=== PATIENT | female | born 1955 | race Caucasian/White ===

== ENCOUNTER 2016-12-23 12:11 | Observation (INO) | payer MEDICARE, MEDICAID ==
--- NOTE | 2016-12-23 13:01 | ER Document Report ---
ED General - General Information source: Dr. Nithya Shine, Outside Facility Records TRAVEL OUTSIDE OF THE [place] IN LAST 30 DAYS: No - HPI Patient complains to provider of: Syncope Onset: This morning Onset/Duration: Sudden, Persistent Associated symptoms: Other - Lower extremity pain from fall <ROBB DENTON - Last Filed: 12/23/16 13:24> <STEPHEN MONGE - Last Filed: 12/23/16 15:53> - General Chief Complaint: Syncope Stated Complaint: ABNORMAL LABS Notes: Patient is a 61-year-old female, with past medical history including hypertension, schizophrenia, and diabetes type 2, and smoking, who presents to the emergency department today after being seen at her primary care physician's office, Dr. Garcia, for a syncopal episode this morning after taking a shower. Patient states that she blacked out and fell down hitting her head. While at the doctor's office, the physician witness several syncopal episodes, and reports a blood pressure of 80/40, blood glucose 186, heart rate of 100. Dr. Garcia sent a note with the patient stating that he wanted her to get evaluated for possible intracranial hemorrhage. The nurse accompanying the patient from [facility] states that the patient has had garbled speech, and will say things that do not make sense. (ROBB DENTON) This 61-year-old schizophrenic patient is brought from her primary care provider 's office hypertension and syncope. While in the office they recorded a blood pressure of 80/40. She was seen to fall several times. She did fall prior to going to the office and striking her right forehead with a minor wound. Emergency room the patient only complains of pain to her left lateral thigh related to a fall 2 months ago which caused some bruising at the time. She is able to lift the leg, flex the hip, and actually move that extremity about quite a lot with no problem. It is not tender to palpate at all. (STEPHEN MONGE) - Related Data Allergies/Adverse Reactions: Penicillins Allergy (Verified 12/23/16 12:45) Past Medical History - General Information source: Dr. Nithya Shine, Outside Facility Records - Nurse from [facility] - Social History Smoking Status: Current Every Day Smoker Family History: None, Reviewed & Not Pertinent Patient has suicidal ideation: No Patient has homicidal ideation: No - Past Medical History Cardiac Medical History: Reports: Hx Hypercholesterolemia, Hx Hypertension Endocrine Medical History: Reports: Hx Diabetes Mellitus Type 2, Hx Hypothyroidism Psychiatric Medical History: Reports: Hx Depression, Hx Schizophrenia Past Surgical History: Reports: Hx Breast Surgery - Lumpectomy - Immunizations Immunizations up to date: No Hx Diphtheria, Pertussis, Tetanus Vaccination: No <MATT DENTONICA - Last Filed: 12/23/16 13:24> Review of Systems - Review of Systems Constitutional: See HPI, Other - Hypotensive EENT: No symptoms reported Cardiovascular: See HPI, Syncope Respiratory: No symptoms reported Gastrointestinal: No symptoms reported Genitourinary: No symptoms reported Female Genitourinary: No symptoms reported Musculoskeletal: See HPI, Other - Pain to left lower extremity from fall Skin: No symptoms reported Hematologic/Lymphatic: No symptoms reported Neurological/Psychological: No symptoms reported -: Yes All other systems reviewed and negative <BERTINROBB - Last Filed: 12/23/16 13:24> Physical Exam - Vital signs Interpretation: Hypotensive - General General appearance: Alert - HEENT Head: Normocephalic, Ecchymosis - Small contusion on left forehead secondary to fall Eyes: Normal Pupils: PERRL - Respiratory Respiratory status: No respiratory distress Chest status: Nontender Breath sounds: Normal Chest palpation: Normal - Cardiovascular Rhythm: Regular Heart sounds: Normal auscultation Murmur: No - Abdominal Inspection: Normal Tenderness: Nontender - Rectal Stool: See lab result, Other - Appeared normal, brown - Back Back: Normal, Nontender - Extremities General upper extremity: Normal inspection, Nontender. No: Edema General lower extremity: Normal inspection, Nontender. No: Edema - Neurological Cognition: Confused Mauro Coma Scale Eye Opening: Spontaneous Mauro Coma Scale Verbal: Confused Mauro Coma Scale Motor: Obeys Commands Mauro Coma Scale Total: 14 - Psychological Associated symptoms: Normal affect, Normal mood - Skin Skin Temperature: Warm Skin Moisture: Dry Skin Color: Normal <BERTINROBB - Last Filed: 12/23/16 13:24> - HEENT Head: Normocephalic, Ecchymosis - Small, minor contusion with abrasion on left mid-forehead secondary to fall.. No: Atraumatic Eyes: Normal Pupils: PERRL - Respiratory Respiratory status: No respiratory distress Chest status: Nontender Breath sounds: Normal, Nonproductive cough - Has an occasional cough with a little rhonchi - Cardiovascular Rhythm: Regular Heart sounds: Normal auscultation Murmur: No - Abdominal Inspection: Obese Distension: No distension Bowel sounds: Normal Tenderness: Nontender <EVELYNSTEPHEN - Last Filed: 12/23/16 15:53> - Vital signs Vitals: Pulse Resp BP Pulse Ox 105 H 22 H 101/59 L 96 12/23/16 12:47 12/23/16 12:47 12/23/16 12:47 12/23/16 12:47 Course - Laboratory Result Diagrams: 12/23/16 13:34 12/23/16 13:34 - Diagnostic Test Radiology reviewed: Image reviewed, Reports reviewed - CT of the head shows mild chronic microvascular ischemic white matter changes with no acute process. Chest x-ray shows prominent chronic interstitial markings, nothing acute. - EKG Interpretation by Me EKG shows normal: Sinus rhythm, Intervals, QRS Complexes, ST-T Waves. abnormal : [place] Rate: Normal - 92 Rhythm: NSR [place]/QRS: Left axis deviation P Waves: LAE - Consults Dr. Vicente Time consulted: 15:50 Consulted provider: will come to ER <STEPHEN MONGE - Last Filed: 12/23/16 15:53> - Vital Signs Vital signs: Temp Pulse Resp BP Pulse Ox 105 H 19 122/71 93 12/23/16 12:47 12/23/16 14:01 12/23/16 14:01 12/23/16 14:01 - Laboratory Laboratory results interpreted by me: 12/23/16 12/23/16 12/23/16 13:34 13:34 14:55 WBC 29.4 H Seg Neuts % (Manual) 91 H Lymphocytes % (Manual) 4 L Monocytes % (Manual) 2 L Abs Neuts (Manual) 27.6 H Sodium 134.3 L Glucose 139 H Ur Leukocyte Esterase MODERATE H Critical Care Note - Critical Care Note Total time excluding time spent on procedures (mins): 30 <STEPHEN MONGE - Last Filed: 12/23/16 15:53> Discharge <ROBB DENTON - Last Filed: 12/23/16 13:24> - Discharge Admitting Provider: Hospitalist Unit Admitted: IMCU <STEPHEN MONGE - Last Filed: 12/23/16 15:53> - Discharge Clinical Impression: Syncope and collapse, Schizophrenia Hypotension Qualifiers: Hypotension type: unspecified hypotension type Qualified Code(s): I95.9 - Hypotension, unspecified Leukocytosis Qualifiers: Leukocytosis type: bandemia Qualified Code(s): D72.825 - Bandemia Urinary tract infection Qualifiers: Urinary tract infection type: site unspecified Hematuria presence: without hematuria Qualified Code(s): N39.0 - Urinary tract infection, site not specified Condition: Stable Disposition: ADMITTED INPATIENT Referrals: ROSALIND GARCIA MD [Primary Care Provider] - Follow up as needed Scribe Attestation: 12/23/16 15:53 I personally performed the services described in the documentation, reviewed and edited the documentation which was dictated to the scribe in my presence, and it accurately records my words and actions. (STEPHEN MONGE) Scribe Documentation - Scribe Written by Scribe:: Oleg Patel, 12/23/2016 1301 acting as scribe for :: Evelyn <ROBB DENTON - Last Filed: 12/23/16 13:24>
--- NOTE | 2016-12-23 13:20 | RADIOLOGY REPORT (SQ) ---
EXAM DESCRIPTION: CT HEAD WITHOUT COMPLETED DATE/TIME: 12/23/2016 1:11 pm REASON FOR STUDY: syncope, AMS COMPARISON: 05/16/2015 TECHNIQUE: Axial images acquired through the brain without intravenous contrast. Images reviewed wi th bone, brain and subdural windows. Images stored on PACS. All CT scanners at this facility use dose modulation, iterative reconstruction, and/or weight based d osing when appropriate to reduce radiation dose to as low as reasonably achievable (ALARA). [facility]: Dose Right [facility]: CareDose [facility]: Dose Right [facility]: Teradose 4D [facility]: [employer] RADIATION DOSE: 64.61 mGy. LIMITATIONS: None. FINDINGS: VENTRICLES: Prominent. CEREBRUM: No masses. No hemorrhage. No midline shift. Areas of low density in the white matter mos t likely due to chronic micro-vascular ischemic change. No evidence for acute infarction. CEREBELLUM: No masses. No hemorrhage. No alteration of density. No evidence for acute infarction. EXTRAAXIAL SPACES: Mild age-related involutional change. No fluid collections. No masses. ORBITS AND GLOBE: No intra- or extraconal masses. Normal contour of globe without masses. CALVARIUM: No fracture. PARANASAL SINUSES: No fluid or mucosal thickening. SOFT TISSUES: No mass or hematoma. OTHER: No other significant finding. IMPRESSION: MILD CHRONIC CHANGES OF ATROPHY AND MICROVASCULAR ISCHEMIA. NO ACUTE PROCESS. TECHNICAL DOCUMENTATION: JOB ID: [id number] Quality ID # [id number]: Final reports with documentation of one or more dose reduction techniques (e.g., Au tomated exposure control, adjustment of the mA and/or kV according to patient size, use of iterative reconstruction technique) 2010 [employer]- All Rights Reserved
[2016-12-23] MEDS ORDERED: NORMAL SALINE 1000 ML 1,000 ML IV ONE ×2 (13:24→14:44)
[2016-12-23 14:06] LABS: HEMATOCRIT 41.4 % (36.0-47.0); HEMOGLOBIN 13.7 g/dL (12.0-15.5); HGB HCT DIFFERENCE -0.3; MEAN CORPUSCULAR HEMOGLOBIN 31.1 pg (27.0-33.4); MEAN CORPUSCULAR HGB CONC 33.2 g/dL (32.0-36.0); MEAN CORPUSCULAR VOLUME 94 fl (80-97); RED BLOOD COUNT 4.42 10^6/uL (3.72-5.28); RED CELL DISTRIBUTION WIDTH 11.8 % (11.5-14.0); WHITE BLOOD COUNT 29.4 10^3/uL (4.0-10.5)
[2016-12-23 14:19] LABS: ALANINE AMINOTRANSFERASE 22 U/L (9-52); ALBUMIN 3.9 g/dL (3.5-5.0); ALKALINE PHOSPHATASE 102 U/L (38-126); ANION GAP 12 (5-19); ASPARTATE AMINO TRANSFERASE 21 U/L (14-36); BILIRUBIN,DIRECT 0.4 mg/dL (0.0-0.4); BILIRUBIN,TOTAL 0.9 mg/dL (0.2-1.3); BLOOD UREA NITROGEN 11 mg/dL (7-20); CALCIUM 10.1 mg/dL (8.4-10.2); CARBON DIOXIDE 23 mmol/L (22-30); CHLORIDE 99 mmol/L (98-107); CREATINE KINASE 133 U/L (30-135); CREATININE RESULT 0.81 mg/dL (0.52-1.25); GLUCOSE 139 mg/dL (75-110); POTASSIUM 4.5 mmol/L (3.6-5.0); SODIUM 134.3 mmol/L (137-145); TOTAL PROTEIN 7.2 g/dL (6.3-8.2)
[2016-12-23 14:27] LABS: BAND NEUTROPHILS % (MANUAL) 3 % (3-5); BASOPHILS % (MANUAL) 0 % (0-2); EOSINOPHILS % (MANUAL) 0 % (0-6); LYMPHOCYTES % (MANUAL) 4 % (13-45); TOTAL CELLS COUNTED 100
[2016-12-23 14:28] LABS: RBC MORPHOLOGY COMMENT NORMO-CYTIC/CHROMIC; TOXIC VACUOLATION PRESENT
[2016-12-23 14:31] LABS: CREATINE KINASE MB 2.61 ng/mL (<4.55)
[2016-12-23 14:32] LABS: TROPONIN I < 0.012 ng/mL
[2016-12-23 15:17] LABS: APPEARANCE,URINE CLOUDY; BILIRUBIN,URINE NEGATIVE (NEGATIVE); GLUCOSE, URINE NEGATIVE (NEGATIVE); KETONES,URINE NEGATIVE (NEGATIVE); LEUKOCYTE ESTERASE,URINE MODERATE (NEGATIVE); NITRITE,URINE NEGATIVE (NEGATIVE); PROTEIN,URINE NEGATIVE (NEGATIVE); URINE SPECIFIC GRAVITY 1.009; UROBILINOGEN,URINE NEGATIVE mg/dL (<2.0)
[2016-12-23] MEDS ORDERED: CEFTRIAXONE 1 GM/D5W RTU 50 ML IV ONE (15:39)
--- NOTE | 2016-12-23 15:41 | RADIOLOGY REPORT (SQ) ---
EXAM DESCRIPTION: CHEST SINGLE VIEW COMPLETED DATE/TIME: 12/23/2016 3:32 pm REASON FOR STUDY: hypotension, leukocytosis COMPARISON: CT chest dated 09/30/2015 EXAM PARAMETERS: NUMBER OF VIEWS: One view. TECHNIQUE: Single frontal radiographic view of the chest acquired. RADIATION DOSE: NA LIMITATIONS: None. FINDINGS: LUNGS AND PLEURA: Interstitial markings are prominent. No consolidation or effusions. MEDIASTINUM AND HILAR STRUCTURES: No masses. Contour normal. HEART AND VASCULAR STRUCTURES: Heart normal in size. Normal vasculature. BONES: No acute findings. HARDWARE: None in the chest. OTHER: No other significant finding. IMPRESSION: Prominent interstitial markings most likely chronic. No acute findings. TECHNICAL DOCUMENTATION: JOB ID: [id number]
--- NOTE | 2016-12-23 16:19 | EKG REPORT ---
SEVERITY:- BORDERLINE ECG - SINUS RHYTHM PROBABLE LEFT ATRIAL ABNORMALITY BORDERLINE LEFT AXIS DEVIATION : Confirmed by: Tyra Johnson MD 23-Dec-2016 16:18:05
[2016-12-23] MEDS ORDERED: ONDANSETRON 4 MG TAB.RAPDIS PO PRN (16:48)
[2016-12-23] MEDS ORDERED: NORMAL SALINE 1000 ML 1,000 ML IV PRN (16:48)
[2016-12-23] MEDS ORDERED: ACETAMINOPHEN 325 MG TABLET PO PRN (16:48)
[2016-12-23] MEDS ORDERED: ONDANSETRON HCL INJ/PF 4 MG/2 ML SDV IV PRN (16:48)
[2016-12-23] MEDS ORDERED: ALBUTEROL SULFATE 0.083% NEB 2.5 MG/3 ML AMPUL NEB PRN (16:48)
[2016-12-23] MEDS ORDERED: INSULIN LISPRO 100 UNIT/ML 3 ML VIAL SUBCUT PRN (16:55)
[2016-12-23] MEDS ORDERED: DEXTROSE 50%-WATER 25 GM/50 ML DISP.SYRIN IV PRN ×2 (16:55)
[2016-12-23] MEDS ORDERED: DEXTROSE 40% GEL 15 GM TUBE PO PRN ×2 (16:55)
[2016-12-23] MEDS ORDERED: GLUCAGON,HUMAN RECOMB 1 MG INJ IM PRN (16:55)
--- NOTE | 2016-12-23 17:13 | PDOC H&P ---
History of Present Illness Admission Date/PCP: 12/23/16 16:51 ROSALIND WISE MD Patient complains of: Blacked out at home History of Present Illness: MANJEET HOFF is a 61 year old female reports that this morning she was getting a shower and felt dizzy and lightheaded and passed out and hit her forehead. The patient did not have any seizure activity and became conscious after hitting the floor. The patient was noted to have hypotension when she presented. Patient reports that she has had some dysuria and urinary frequency for the last 2 days. She also reports that she had decreased p.o. intake because she felt somewhat nauseous. She also reports having a nonproductive cough but denies any chest pain. She denies having any fevers or chills. The patient had a head CT which showed no acute event and she received IV fluids in the emergency room and her hypotension resolved. Patient has no evidence for infection except for the urinary tract infection. Past Medical History Cardiac Medical History: Reports: Hyperlipidema, Hypertension Pulmonary Medical History: Reports: None EENT Medical History: Reports: None Neurological Medical History: Denies: Seizures Endocrine Medical History: Reports: Diabetes Mellitus Type 2, Hypothyroidism Renal/ Medical History: Reports: None Malignancy Medical History: Reports: None GI Medical History: Reports: None Musculoskeltal Medical History: Reports: None Skin Medical History: Reports: None Psychiatric Medical History: Reports: Depression, Other - Schizophrenia Hematology: Reports: None Infectious Medical History: Reports: None Past Surgical History Past Surgical History: Reports: Other - Left breast lumpectomy that was benign Social History Information Source: Patient Lives with: Other - Assisted-living Smoking Status: Current Every Day Smoker Frequency of Alcohol Use: None Hx Recreational Drug Use: No Drugs: None Hx Prescription Drug Abuse: No - Advance Directive Resuscitation Status: Full Code Family History Family History: None Family History: Mother at 68 and she is uncertain as to her health history. Father at age 87 and had no chronic health problems. Parental Family History Reviewed: Yes Children Family History Reviewed: No Sibling(s) Family History Reviewed.: No Medication/Allergy Home Medications: Acetaminophen [Tylenol 325 mg Tablet] 650 mg PO Q8HP PRN 12/23/16 Aspirin [Aspirin 81 mg Chewable Tablet] 81 mg PO DAILY 12/23/16 Atorvastatin Calcium [Lipitor 20 mg Tablet] 20 mg PO QHS 12/23/16 Citalopram Hydrobromide [Celexa 40 mg Tablet] 40 mg PO DAILY 12/23/16 Fluphenazine HCl 5 mg PO QHS 12/23/16 Fluphenazine HCl [Prolixin 2.5 mg Tablet] 2.5 mg PO DAILY 12/23/16 Furosemide [Lasix 20 mg Tablet] 20 mg PO DAILY 12/23/16 Glipizide [Glucotrol Xl] 5 mg PO BIDBS 12/23/16 Guaifenesin/Codeine Phosphate [Cheratussin AC Syrup] 10 ml PO TIDP PRN 12/23/16 Guaifenesin/Codeine Phosphate [Cheratussin AC Syrup] 15 ml PO QHS 12/23/16 Ibuprofen [Motrin 800 mg Tablet] 800 mg PO Q8HP PRN 12/23/16 Insulin Aspart [Novolog Insulin (Aspart) 100 unit/mL] 4 units SQ ASDIR PRN 12/23 Insulin Aspart [Novolog Insulin (Aspart) 100 unit/mL] 4 units SQ BIDP PRN Ketotifen Fumarate [Alaway] 1 drop OU Q12 12/23/16 Levothyroxine Sodium [Synthroid 0.088 mg Tablet] 88 mcg PO QAM 12/23/16 Loratadine [Claritin 10 mg Tablet] 10 mg PO DAILY 12/23/16 Lorazepam [Ativan 0.5 mg Tablet] 0.5 mg PO DAILYP PRN 12/23/16 Multivitamin/Iron/Folic Acid [Cerovite Advanced Form Tab] 1 tab PO DAILY Mupirocin [Bactroban 2% Ointment 22 gm] 1 applic TOP Q12HP PRN 12/23/16 Naproxen 500 mg PO Q12 12/23/16 Ramipril [Altace 10 mg Capsule] 10 mg PO QHS 12/23/16 Trihexyphenidyl HCl 2 mg PO QHS 12/23/16 Cefuroxime Axetil [Ceftin 500 mg Tablet] 1 tab PO BID #20 tablet 12/24/16 Allergies/Adverse Reactions: Penicillins Allergy (Verified 12/23/16 12:45) Review of Systems Constitutional: ABSENT: chills, fever(s), headache(s), weight gain, weight loss Eyes: ABSENT: visual disturbances Ears: ABSENT: hearing changes Cardiovascular: ABSENT: chest pain, dyspnea on exertion, edema, orthropnea, palpitations Respiratory: PRESENT: cough. ABSENT: dyspnea, hemoptysis Gastrointestinal: PRESENT: nausea. ABSENT: melena, vomiting Genitourinary: PRESENT: dysuria. ABSENT: hematuria Musculoskeletal: ABSENT: joint swelling Integumentary: ABSENT: rash, wounds Neurological: PRESENT: syncope. ABSENT: abnormal gait, abnormal speech, confusion, convulsions, dizziness, focal weakness Psychiatric: ABSENT: anxiety, depression Endocrine: ABSENT: cold intolerance, heat intolerance, polydipsia, polyuria Hematologic/Lymphatic: ABSENT: easy bleeding, easy bruising Physical Exam Vital Signs: Temp Pulse Resp BP Pulse Ox 97.5 F 105 H 22 H 138/74 H 100 12/23/16 16:31 12/23/16 12:47 12/23/16 16:31 12/23/16 16:31 12/23/16 16:31 General appearance: PRESENT: no acute distress, well-developed, well-nourished Head exam: PRESENT: normocephalic. ABSENT: atraumatic - Hematoma on the forehead approximately 3 cm in size. Eye exam: PRESENT: conjunctiva pink, EOMI, PERRLA. ABSENT: scleral icterus Ear exam: PRESENT: normal external ear exam Mouth exam: PRESENT: moist, tongue midline Neck exam: ABSENT: carotid bruit, JVD, lymphadenopathy, thyromegaly Respiratory exam: PRESENT: clear to auscultation janet. ABSENT: rales, rhonchi, wheezes Cardiovascular exam: PRESENT: RRR. ABSENT: diastolic murmur, rubs, systolic murmur Pulses: PRESENT: normal dorsalis pedis pul Vascular exam: PRESENT: normal capillary refill GI/Abdominal exam: PRESENT: normal bowel sounds, soft. ABSENT: distended, guarding, mass, organolmegaly, rebound, tenderness Rectal exam: PRESENT: deferred Extremities exam: ABSENT: calf tenderness, clubbing, pedal edema Neurological exam: PRESENT: alert, awake, oriented to person, oriented to place , oriented to time, oriented to situation, CN II-XII grossly intact. ABSENT: motor sensory deficit Psychiatric exam: PRESENT: appropriate affect Skin exam: PRESENT: other - Hematoma on the forehead approximately 3 cm in size. Results Impressions: Head CT 12/23/16 12:54 IMPRESSION: MILD CHRONIC CHANGES OF ATROPHY AND MICROVASCULAR ISCHEMIA. NO ACUTE PROCESS. Chest X-Ray 12/23/16 14:44 IMPRESSION: Prominent interstitial markings most likely chronic. No acute findings. Assessment & Plan - Diagnosis (1) Syncope and collapse Is this a current diagnosis for this admission?: YesPlan: Patient was hypotensive and appears to have some dehydration as a cause for syncope. Will monitor on telemetry to make certain she has not had any cardiac arrhythmias. Will give IV fluids overnight. The patient does have urinary tract infection but most likely does not have sepsis does have a white blood cell count of greater than 20,000. (2) Hypotension Qualifiers: Hypotension type: unspecified hypotension type Qualified Code(s): I95.9 - Hypotension, unspecified Is this a current diagnosis for this admission?: YesPlan: Most likely secondary to decreased p.o. intake and dehydration. The possibility of sepsis is considered. She did respond to IV fluid bolus and does have elevated white blood cell count will monitor closely. (3) Dehydration Is this a current diagnosis for this admission?: YesPlan: Reports decreased p.o. intake over the last several days because of nausea. Will give IV fluids. (4) Urinary tract infection Qualifiers: Urinary tract infection type: site unspecified Hematuria presence: without hematuria Qualified Code(s): N39.0 - Urinary tract infection, site not specified Is this a current diagnosis for this admission?: YesPlan: Urine and blood cultures have been obtained. Will treat with IV Rocephin. (5) Leukocytosis Qualifiers: Leukocytosis type: bandemia Qualified Code(s): D72.825 - Bandemia Is this a current diagnosis for this admission?: YesPlan: Secondary to urinary tract infection. (6) Diabetes mellitus Is this a current diagnosis for this admission?: YesPlan: We will treat with sliding scale insulin. (7) Hypertension Is this a current diagnosis for this admission?: YesPlan: We will hold antihypertensives for now. (8) Hyperlipidemia Is this a current diagnosis for this admission?: Yes (9) Schizophrenia Is this a current diagnosis for this admission?: YesPlan: Denies any hallucinations at this time - Time Time Spent: 50 to 70 Minutes - Plan Summary Plan Summary: Admit as an observation. If her blood pressure remains normal and she is taking adequate liquids and and her white count decreases will discharge home tomorrow.
[2016-12-23] MEDS ORDERED: ENOXAPARIN SODIUM INJ 40 MG/0.4 ML DISP.SYRIN SUBCUT ONE (18:00)
[2016-12-23] MEDS: FAMOTIDINE 20 MG TABLET PO SCH (22:01)
[2016-12-24 04:43] LABS: ANION GAP 7 (5-19); BLOOD UREA NITROGEN 11 mg/dL (7-20); CALCIUM 9.2 mg/dL (8.4-10.2); CARBON DIOXIDE 24 mmol/L (22-30); CHLORIDE 105 mmol/L (98-107); CREATININE RESULT 0.55 mg/dL (0.52-1.25); GLUCOSE 76 mg/dL (75-110); POTASSIUM 4.2 mmol/L (3.6-5.0); SODIUM 135.7 mmol/L (137-145)
[2016-12-24 05:04] LABS: HEMATOCRIT 34.7 % (36.0-47.0); HGB HCT DIFFERENCE 0.1; MEAN CORPUSCULAR HEMOGLOBIN 31.6 pg (27.0-33.4); MEAN CORPUSCULAR HGB CONC 33.3 g/dL (32.0-36.0); MEAN CORPUSCULAR VOLUME 95 fl (80-97); RED BLOOD COUNT 3.66 10^6/uL (3.72-5.28)
[2016-12-24 05:17] LABS: HEMOGLOBIN 11.6 g/dL (12.0-15.5)
[2016-12-24] MEDS ORDERED: ENOXAPARIN SODIUM INJ 40 MG/0.4 ML DISP.SYRIN SUBCUT SCH (08:00)
[2016-12-24] MEDS ORDERED: ASPIRIN 81 MG TABLET, CHEWABLE PO SCH (10:00)
[2016-12-24] MEDS: FAMOTIDINE 20 MG TABLET PO SCH (10:00)
[2016-12-24] MEDS ORDERED: CEFTRIAXONE 1 GM/D5W RTU 50 ML IV SCH (10:00)
--- NOTE | 2016-12-24 10:05 | PDOC DISCHARGE SUMMARY ---
General - Admit/Disc Date/PCP Admission Date/Primary Care Provider: 12/23/16 16:48 ROSALIND WSIE MD Discharge Date: 12/24/16 - Discharge Diagnosis (1) Syncope and collapse Is this a current diagnosis for this admission?: YesSummary: Likely secondary to dehydration. (2) Hypotension Is this a current diagnosis for this admission?: YesSummary: Secondary to dehydration. (3) Dehydration Is this a current diagnosis for this admission?: YesSummary: Secondary to urinary tract infection. (4) Urinary tract infection Is this a current diagnosis for this admission?: YesSummary: Negative cultures so far. Started on Rocephin initially and will be sent home on a course of Ceftin. (5) Leukocytosis Is this a current diagnosis for this admission?: YesSummary: Secondary to urinary tract infection. (6) Diabetes mellitus Is this a current diagnosis for this admission?: Yes (7) Hypertension Is this a current diagnosis for this admission?: Yes (8) Hyperlipidemia Is this a current diagnosis for this admission?: Yes (9) Schizophrenia Is this a current diagnosis for this admission?: Yes - Additional Information Resuscitation Status: Full Code Discharge Diet: Diabetic Discharge Activity: Activity As Tolerated Home Medications: Acetaminophen [Tylenol 325 mg Tablet] 650 mg PO Q8HP PRN 12/23/16 Aspirin [Aspirin 81 mg Chewable Tablet] 81 mg PO DAILY 12/23/16 Atorvastatin Calcium [Lipitor 20 mg Tablet] 20 mg PO QHS 12/23/16 Citalopram Hydrobromide [Celexa 40 mg Tablet] 40 mg PO DAILY 12/23/16 Fluphenazine HCl 5 mg PO QHS 12/23/16 Fluphenazine HCl [Prolixin 2.5 mg Tablet] 2.5 mg PO DAILY 12/23/16 Furosemide [Lasix 20 mg Tablet] 20 mg PO DAILY 12/23/16 Glipizide [Glucotrol Xl] 5 mg PO BIDBS 12/23/16 Guaifenesin/Codeine Phosphate [Cheratussin AC Syrup] 10 ml PO TIDP PRN 12/23/16 Guaifenesin/Codeine Phosphate [Cheratussin AC Syrup] 15 ml PO QHS 12/23/16 Ibuprofen [Motrin 800 mg Tablet] 800 mg PO Q8HP PRN 12/23/16 Insulin Aspart [Novolog Insulin (Aspart) 100 unit/mL] 4 units SQ ASDIR PRN 12/23 Insulin Aspart [Novolog Insulin (Aspart) 100 unit/mL] 4 units SQ BIDP PRN Ketotifen Fumarate [Alaway] 1 drop OU Q12 12/23/16 Levothyroxine Sodium [Synthroid 0.088 mg Tablet] 88 mcg PO QAM 12/23/16 Loratadine [Claritin 10 mg Tablet] 10 mg PO DAILY 12/23/16 Lorazepam [Ativan 0.5 mg Tablet] 0.5 mg PO DAILYP PRN 12/23/16 Multivitamin/Iron/Folic Acid [Cerovite Advanced Form Tab] 1 tab PO DAILY Mupirocin [Bactroban 2% Ointment 22 gm] 1 applic TOP Q12HP PRN 12/23/16 Naproxen 500 mg PO Q12 12/23/16 Ramipril [Altace 10 mg Capsule] 10 mg PO QHS 12/23/16 Trihexyphenidyl HCl 2 mg PO QHS 12/23/16 Cefuroxime Axetil [Ceftin 500 mg Tablet] 1 tab PO BID #20 tablet 12/24/16 History of Present Illness History of Present Illness: MANJEET HOFF is a 61 year old female reports that this morning she was getting a shower and felt dizzy and lightheaded and passed out and hit her forehead. The patient did not have any seizure activity and became conscious after hitting the floor. The patient was noted to have hypotension when she presented. Patient reports that she has had some dysuria and urinary frequency for the last 2 days. She also reports that she had decreased p.o. intake because she felt somewhat nauseous. She also reports having a nonproductive cough but denies any chest pain. She denies having any fevers or chills. The patient had a head CT which showed no acute event and she received IV fluids in the emergency room and her hypotension resolved. Patient has no evidence for infection except for the urinary tract infection. Hospital Course Hospital Course: 61-year-old female who presented after having syncope and was found to be hypotensive. Patient was given a bolus of IV fluids and no longer had any hypotension. She was noted to have a urinary tract infection as well as an elevated white blood cell count. The patient was started on Rocephin and improved overnight. She had no further episodes of hypotension and her white count improved slightly. It was felt that this was a urinary tract infection with dehydration leading to syncope. The possibility of sepsis was considered however she did not have any further hypotension after the initial IV fluid bolus. The patient's cultures were negative after 24 hours and she was treated with Rocephin and will be sent home to finish a course of Ceftin. The patient' s other medical problems all were stable during this hospitalization. Physical Exam Vital Signs: Temp Pulse Resp BP Pulse Ox 98.3 F 65 16 148/56 H 96 12/24/16 08:02 12/24/16 08:02 12/24/16 08:02 12/24/16 08:02 12/24/16 08:02 Intake & Output 12/23/16 12/24/16 12/25/16 06:59 06:59 06:59 Intake Total 1193 Output Total 1350 Balance -157 Weight 89.3 kg General appearance: PRESENT: no acute distress Eye exam: PRESENT: conjunctiva pink. ABSENT: scleral icterus Ear exam: PRESENT: normal external ear exam Mouth exam: PRESENT: moist, tongue midline Neck exam: ABSENT: carotid bruit, JVD, lymphadenopathy, thyromegaly Respiratory exam: PRESENT: clear to auscultation janet. ABSENT: rales, rhonchi, wheezes Cardiovascular exam: PRESENT: RRR. ABSENT: diastolic murmur, rubs, systolic murmur GI/Abdominal exam: PRESENT: normal bowel sounds, soft. ABSENT: distended, guarding, mass, organolmegaly, rebound, tenderness Extremities exam: ABSENT: calf tenderness, clubbing, pedal edema Neurological exam: PRESENT: alert, awake, oriented to person, oriented to place , oriented to time, oriented to situation, CN II-XII grossly intact. ABSENT: motor sensory deficit Psychiatric exam: PRESENT: appropriate affect Skin exam: PRESENT: dry, intact, warm. ABSENT: cyanosis, rash Results Laboratory Results: 12/24/16 03:59 12/24/16 03:59 12/24/16 12/24/16 03:59 03:59 WBC 22.0 H RBC 3.66 L Hgb 11.6 L D Hct 34.7 L MCV 95 MCH 31.6 MCHC 33.3 RDW 12.0 Plt Count 262 Sodium 135.7 L Potassium 4.2 Chloride 105 Carbon Dioxide 24 Anion Gap 7 BUN 11 Creatinine 0.55 Est GFR ( Amer) > 60 Est GFR (Non-Af Amer) > 60 Glucose 76 Calcium 9.2 Impressions: Head CT 12/23/16 12:54 IMPRESSION: MILD CHRONIC CHANGES OF ATROPHY AND MICROVASCULAR ISCHEMIA. NO ACUTE PROCESS. Chest X-Ray 12/23/16 14:44 IMPRESSION: Prominent interstitial markings most likely chronic. No acute findings. Qualifiers PATEINT BEING DISCHARGED WITH ANY OF THE FOLLOWING DIAGNOSIS?: No Plan Discharge Plan: Patient is discharged back to assisted living. Will follow with primary care in 2 weeks. Time Spent: Less than 30 Minutes
[2016-12-24 11:44] VITALS: BP 133/56
== END 2016-12-24 12:56 | disposition home health service (06) ==
LOC: ER 12:11 → EH 16:48 → UNDOADMOB 16:51 → INTOOBSV 16:51 → EH 16:51 → 3W 20:01
PROVIDERS: ADMIT Family Medicine; ATTEND Family Medicine
DX: R55 Syncope and collapse (principal); N39.0 Urinary tract infection, site not specified; D72.825 Bandemia; E86.0 Dehydration; I95.9 Hypotension, unspecified; E11.9 Type 2 diabetes mellitus without complications; I10 Essential (primary) hypertension; E78.5 Hyperlipidemia, unspecified; F20.9 Schizophrenia, unspecified; R05 Cough; F17.200 Nicotine dependence, unspecified, uncomplicated; S00.83XA Contusion of other part of head, initial encounter; W19.XXXA Unspecified fall, initial encounter; Y93.E1 Activity, personal bathing and showering; Y92.121 Bathroom in nursing home as the place of occurrence of the external cause; M79.652 Pain in left thigh; T14.90 Injury, unspecified; W19.XXXS Unspecified fall, sequela; Z79.899 Other long term (current) drug therapy; Z79.4 Long term (current) use of insulin; Z79.1 Long term (current) use of non-steroidal anti-inflammatories (NSAID); E66.9 Obesity, unspecified; Z68.32 Body mass index [BMI] 32.0-32.9, adult
CPT/HCPCS: 93005; 99291; 96361; 96365; 36415 ×2; 87040; 87086; 82553; 82962 ×2; 82550; 85025; 85027; 82272; 87088; 80048; 80053; 81001; 84484; 87186; 83605; 71010; 70450; 93010; A9270 ×3; J1650 ×2; J3490; J7030; J0696; G0378

== ENCOUNTER → 2017-03-18 | Outpatient (CLI) | payer MEDICARE, MEDICAID ==
[2017-03-18 09:31] LABS: ANION GAP 7 (5-19); BLOOD UREA NITROGEN 5 mg/dL (7-20); CALCIUM 9.7 mg/dL (8.4-10.2); CARBON DIOXIDE 31 mmol/L (22-30); CHLORIDE 99 mmol/L (98-107); CHOLESTEROL 145.39 mg/dL (0-200); CREATININE RESULT 0.58 mg/dL (0.52-1.25); Direct HDL 53 mg/dL (>40); GLUCOSE 72 mg/dL (75-110); POTASSIUM 4.3 mmol/L (3.6-5.0); SODIUM 136.9 mmol/L (137-145); TRIGLYCERIDES 97 mg/dL (<150)
[2017-03-18 09:51] LABS: DIRECT LDL 73 mg/dL (<100)
== END ==
LOC: OD 08:10
PROVIDERS: ATTEND Family Medicine
DX: E03.9 Hypothyroidism, unspecified (principal); E11.9 Type 2 diabetes mellitus without complications; I10 Essential (primary) hypertension; Z79.899 Other long term (current) drug therapy
CPT/HCPCS: 36415; 80048; 80061; 83036; 84443

== ENCOUNTER → 2017-03-31 | Outpatient (CLI) | payer MEDICARE, MEDICAID ==
--- NOTE | 2017-04-01 11:24 | WOMENS IMAGING REPORT ---
EXAM DESCRIPTION: 3D SCREENING MAMMO BILAT COMPLETED DATE/TIME: 03/31/2017 2:04 pm REASON FOR STUDY: ROUTINE SCREENING; Z12.31 Z12.31 ENCNTR SCREEN MAMMOGRAM FOR MALIGNANT NEOPLASM O F EBENEZER COMPARISON: Multiple since 2008 TECHNIQUE: Standard craniocaudal and mediolateral oblique views of each breast recorded using digita l acquisition and breast tomosynthesis. LIMITATIONS: None. FINDINGS: Findings present which are benign by mammographic criteria. No suspicious masses, calcifi cations or architectural distortion. Pertinent benign findings: Stable benign left breast calcifications. Read with the assistance of CAD. .[facility] - R2 Cenova Version 1.3 .[facility] - R2 Cenova Version 1.3 .[facility] - R2 Cenova Version 2.4 .[facility] [place] R2 Cenova Version 2.4 .[facility] - R2 Book Shelver Version 9.2 Benign mammographic findings may include one or more of the following: Smooth masses, popcorn/rim/co arse calcifications, asymmetries, post-procedure changes, and lesions with long-standing stability. IMPRESSION: BENIGN MAMMOGRAPHIC FINDINGS. BIRADS 2 BREAST DENSITY: b. There are scattered areas of fibroglandular density. BIRAD: 2 BENIGN FINDING(S) RECOMMENDATION: RECOMMENDATION: ROUTINE SCREENING Please continue yearly bilateral screening tomosynthesis in March 2018 COMMENT: The patient has been notified of the results by letter per MQSA requirements. Additional no tification policies are in place for contacting patient with suspicious or incomplete findings. Quality ID #[id number]: The [employer] recommends an annual screening mammogram for women aged 40 years or over. This facility utilizes a reminder system to ensure that all patients receive reminder letters, and/or direct phone calls for appointments. This includes reminders for routine scr eening mammograms, diagnostic mammograms, or other Breast Imaging Interventions when appropriate. Th is patient will be placed in the appropriate reminder system. The [employer] (ACR) has developed recommendations for screening MRI of the breast s in certain patient populations, to be used in conjunction with mammography. Breast MRI surveillanc e may be appropriate for women with more than 20% lifetime risk of developing breast cancer as deter mined by genetic testing, significant family history of the disease, or history of mantle radiation f or Hodgkins Disease. ACR Practice Guidelines 2008. DBT Technology DBT is a type of tomographic mammography. With conventional mammography, overlapping breast tissue ma y make lesions difficult to detect, even with good compression. DBT uses an x-ray tube that rotates a round the breast, taking images at different angles. These images are then combined to create thin sl ices of the breast that the radiologist can view as a 3D reconstruction. The [employer] unit can perform full-field digital mammograms (2D imaging); or DBT (3D imaging); or both, in a combination mode that quickly performs both the mammogram and the tomosynthesis scan while the breast is still compressed. PQRS 6045F: Fluoroscopic imaging is not utilized for breast tomosynthesis. TECHNICAL DOCUMENTATION: FINDING NUMBER: (1) ASSESSMENT: (1) JOB ID: [id number] [employer]- All Rights Reserved
== END ==
LOC: RAD 09:23
PROVIDERS: ATTEND Family Medicine
DX: Z12.31 Encounter for screening mammogram for malignant neoplasm of breast (principal)
CPT/HCPCS: 77063; G0202; 77067

== ENCOUNTER 2017-04-02 13:21 | Emergency (ER) | payer MEDICARE, MEDICAID ==
[2017-04-02 13:28] VITALS: BP 151/71
--- NOTE | 2017-04-02 13:36 | ER Document Report ---
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 She states she tripped over cord and fell, landing on her knees first. She denies hitting her head or LOC. Endorses associated bruising, swelling and pain. Patient is ambulatory but walking is painful. She was given naproxen during her morning meds but this was administered prior to the fall. She has not had any medication since then. TRAVEL OUTSIDE OF THE [place] IN LAST 30 DAYS: No - Related Data Allergies/Adverse Reactions: Penicillins Allergy (Verified 04/02/17 13:27) Past Medical History - General Information source: Patient - Social History Smoking Status: Former Smoker Family History: None - Past Medical History Cardiac Medical History: Reports: Hx Hypercholesterolemia, Hx Hypertension Neurological Medical History: Denies: Hx Seizures Endocrine Medical History: Reports: Hx Diabetes Mellitus Type 2, Hx Hypothyroidism Renal/ Medical History: Denies: Hx Peritoneal Dialysis Psychiatric Medical History: Reports: Hx Depression, Hx Schizophrenia Past Surgical History: Reports: Hx Breast Surgery - Lumpectomy, Other - Left breast lumpectomy that was benign - Immunizations Immunizations up to date: No Hx Diphtheria, Pertussis, Tetanus Vaccination: No Review of Systems - Review of Systems Constitutional: No symptoms reported EENT: No symptoms reported Cardiovascular: No symptoms reported Respiratory: No symptoms reported Gastrointestinal: No symptoms reported Genitourinary: No symptoms reported Female Genitourinary: No symptoms reported Musculoskeletal: See HPI Skin: No symptoms reported Hematologic/Lymphatic: No symptoms reported Neurological/Psychological: No symptoms reported Physical Exam - Vital signs Vitals: Temp Pulse Resp BP Pulse Ox 97.4 F 93 18 151/71 H 98 04/02/17 13:25 04/02/17 13:25 04/02/17 13:25 04/02/17 13:25 04/02/17 13:25 Interpretation: Hypertensive - Notes Notes: PHYSICAL EXAM: CONSTITUTIONAL: Alert and oriented, well-appearing and in no acute distress. HENT: Normocephalic, atraumatic. Moist mucous membranes. EYES: Pupils equal round and reactive to light, EOM intact. Sclera anicteric, conjunctiva are normal. No entrapment. NECK: supple without lymphadenopathy. No midline tenderness or paraspinous muscle spasms. No step-offs or deformities. ROM intact. HEART: Regular rate and rhythm without murmurs. LUNGS: CTAB and equal. No wheezes, rales or rhonchi. BACK: nontender, no paraspinous spasm, 5+/5 strengths, DTRs 2+, SLR -. EXTREMITIES: Right knee tender to palpation across knee with significant swelling, mild ecchymosis noted. ROM intact but painful. no pitting edema. No cyanosis. Cap Refill <3 seconds. NEURO: Cranial nerves grossly intact. Normal sensory/motor exams. PSYCH: Normal mood, normal affect. SKIN: Warm and dry. Normal turgor. No rashes or lesions noted. Course - Re-evaluation Re-evalutation: 04/02/17 13:36 Patient seen and examined. Significant swelling with associated bruising to right knee. S/p mechanical fall, no LOC or head injury. Will obtain xrays. 04/02/17 14:48 Reviewed imaging studies - anterior soft tissue swelling but no acute effusion/ fracture or dislocation. Discussed results with patient. Feel due to patients fall risk, will not prescribe narcotics. Patient has scheduled naprosyn, will add tylenol in addition for pain. Discussed RICE instructions. At this time, will discharge with return precautions and follow-up recommendations. Verbal discharge instructions given at the bedside and opportunity for questions given. Medication warnings reviewed. Patient is in agreement with this plan and has verbalized understanding of return precautions and the need for primary care follow-up in the next 24-72 hours. - Vital Signs Vital signs: Temp Pulse Resp BP Pulse Ox 97.4 F 93 18 151/71 H 98 04/02/17 13:25 04/02/17 13:25 04/02/17 13:25 04/02/17 13:25 04/02/17 13:25 - Diagnostic Test Radiology reviewed: Image reviewed, Reports reviewed Discharge - Discharge Clinical Impression: Contusion of right knee, initial encounter, Swelling of knee joint, right Condition: Stable Disposition: HOME, SELF-CARE Additional Instructions: SPRAIN: Your injury is a sprain. A sprain results from stretching or tearing of the ligaments, usually from a twisting injury. The ligaments will require time and protection in order to heal properly. Many sprains are quite disabling and should be taken seriously. The usual initial treatment of sprains is cold packs, elevation, and rest of the injured area. Your physician has assessed the seriousness of your ligament injury, and has outlined a treatment plan. Understand that this treatment may change, depending on how you progress. If a re-examination was recommended, it is important that you follow up as instructed. Call the doctor any time if there is severe pain, numbness, or loss of function in the injured area. ISH WRAP: A compression dressing (ish wrap) has been placed. This helps hold the area still. It limits swelling and internal bleeding. The wrap should be comfortably snug -- not tight. You should feel a sense of pressure, but not severe pain under the wrap. Unless the physician tells you otherwise, you can adjust the wrap for comfort. If the wrap causes symptoms suggesting it's too tight -- uncomfortable pressure, swelling or discoloration beyond the wrap, numbness, or severe pain - - you must loosen the wrap. If these symptoms don't resolve promptly, return for re-evaluation. SPRAINED KNEE: Your sprained knee results from a stretching or tearing of the ligaments which support the joint. This often results from a bending stress -- such as a twisting fall while skiing or a "clip" while playing football. The ligaments will require time and protection to heal adequately. A knee sprain can be quite serious, and should be taken seriously. The usual treatment is splinting of the knee, ice packs, and elevation. You shouldn't walk on the leg if weightbearing is painful. Unless the sprain is obviously a minor one, follow-up exam is very important. The degree of ligament damage often cannot be fully assessed at first due to muscle spasm and pain. Your treatment plan may change based on the physician's findings during your follow-up examination. Call the doctor at once if there is severe swelling, increasing pain, numbness, or other alarming symptoms. ICE & ELEVATION: Apply ice packs frequently against the painful area. Many different schedules are recommended, such as "20 minutes on, 20 minutes off" or "one hour ice, two hours rest." If you need to work, you may need to go longer between ice treatments. You should plan to have the area ice packed AT LEAST one- fourth of the time. The ice should be applied over the wrap, tape, or splint, or over a layer of cloth -- not directly against the skin. Some ice bags have a built-in cloth and can be put directly on the skin. Your injured part should be elevated as much as possible over the next 48 hours. Try to keep the injury above the level of the heart. Avoid use of the injured area. Elevation and rest will decrease the swelling. USE OF TDSA-OEX-IWUMGCE IBUPROFEN: Ibuprofen (Advil, Nuprin, Medipren, Motrin IB) is a medication for fever and pain control. In addition, it has anti- inflammatory effects which may be beneficial, especially in the treatment of injuries. It's best to take ibuprofen with food. Persons with ulcer disease or allergy to aspirin should notify their physician of this before taking ibuprofen. Ibuprofen can be given every four to six hours, for a total of four doses daily. Age Pain or fever dose Antiinflammatory dose 6-8 yr 200 mg (1 tab) 200 mg (1 tab) 9-11 yr 200 mg (1 tab) 200-400 mg (1-2 tab) 11-14 yr 200-400 mg (1-2 tab) 400 mg (2 tab) 15-adult 400 mg (2 tab) 600 mg (3 tab) FOLLOW-UP CARE: If you have been referred to a physician for follow-up care, call the physician s office for an appointment as you were instructed or within the next two days. If you experience worsening or a significant change in your symptoms, notify the physician immediately or return to the Emergency Department at any time for re-evaluation. Prescriptions: Acetaminophen [Tylenol 325 mg Tablet] 650 mg PO Q6HP PRN #60 tablet PRN Reason: Forms: Elevated Blood Pressure Referrals: ROSALIND WISE MD [Primary Care Provider] - Follow up in 3-5 days
[2017-04-02] MEDS ORDERED: ACETAMINOPHEN 325 MG TABLET PO ONE (13:44)
--- NOTE | 2017-04-02 14:12 | RADIOLOGY REPORT (SQ) ---
EXAM DESCRIPTION: KNEE RIGHT 4 VIEWS COMPLETED DATE/TIME: 04/02/2017 1:58 pm REASON FOR STUDY: right knee pain and swelling s/p fall COMPARISON: 01/16/2016 NUMBER OF VIEWS: Four views. TECHNIQUE: AP, lateral, and both oblique radiographic images acquired of the right knee. LIMITATIONS: None. FINDINGS: MINERALIZATION: Normal. BONES: No acute fracture or dislocation. No worrisome bone lesions. JOINT: No effusion. SOFT TISSUES: Anterior soft tissue swelling. OTHER: No other significant finding. IMPRESSION: Soft tissue swelling with no osseous abnormality. TECHNICAL DOCUMENTATION: JOB ID: [id number] [employer]- All Rights Reserved
== END 2017-04-02 14:55 | disposition home or self-care (01) ==
LOC: ER 13:21
DX: S80.01XA Contusion of right knee, initial encounter (principal); M25.461 Effusion, right knee; M25.569 Pain in unspecified knee; W19.XXXA Unspecified fall, initial encounter; Z87.891 Personal history of nicotine dependence
CPT/HCPCS: 99283; 73564; A9270

== ENCOUNTER 2017-04-04 22:14 | Emergency (ER) | payer MEDICARE, MEDICAID ==
--- NOTE | 2017-04-04 23:27 | EKG REPORT ---
SEVERITY:- ABNORMAL ECG - SINUS RHYTHM MULTIPLE ATRIAL PREMATURE COMPLEXES BORDERLINE LEFT AXIS DEVIATION : Confirmed by: Lotus Olivarez 04-Apr-2017 23:27:14
[2017-04-05 00:02] LABS: ALANINE AMINOTRANSFERASE 27 U/L (9-52); ALBUMIN 3.6 g/dL (3.5-5.0); ALKALINE PHOSPHATASE 104 U/L (38-126); ANION GAP 8 (5-19); ASPARTATE AMINO TRANSFERASE 19 U/L (14-36); BILIRUBIN,DIRECT 0.4 mg/dL (0.0-0.4); BILIRUBIN,TOTAL 0.4 mg/dL (0.2-1.3); BLOOD UREA NITROGEN 10 mg/dL (7-20); CALCIUM 9.2 mg/dL (8.4-10.2); CARBON DIOXIDE 29 mmol/L (22-30); CHLORIDE 96 mmol/L (98-107); CREATINE KINASE 49 U/L (30-135); GLUCOSE 68 mg/dL (75-110); POTASSIUM 3.8 mmol/L (3.6-5.0); SODIUM 132.7 mmol/L (137-145); TOTAL PROTEIN 6.3 g/dL (6.3-8.2)
[2017-04-05 00:08] LABS: APPEARANCE,URINE CLEAR; BILIRUBIN,URINE NEGATIVE (NEGATIVE); GLUCOSE, URINE NEGATIVE (NEGATIVE); KETONES,URINE NEGATIVE (NEGATIVE); LEUKOCYTE ESTERASE,URINE NEGATIVE (NEGATIVE); NITRITE,URINE NEGATIVE (NEGATIVE); PROTEIN,URINE NEGATIVE (NEGATIVE); URINE SPECIFIC GRAVITY 1.001; UROBILINOGEN,URINE NEGATIVE mg/dL (<2.0)
[2017-04-05 00:15] LABS: ABSOLUTE BASOPHILS # (AUTO) 0.1 10^3/uL (0.0-0.2); ABSOLUTE EOSINOPHILS # (AUTO) 0.3 10^3/uL (0.0-0.6); ABSOLUTE LYMPHOCYTES (AUTO) 2.8 10^3/uL (0.5-4.7); ABSOLUTE NEUT (AUTO) 7.4 10^3/uL (1.7-8.2); BASOPHILS % (AUTO) 0.7 % (0-2); EOSINOPHILS % (AUTO) 2.4 % (0-6); HEMATOCRIT 33.6 % (36.0-47.0); HEMOGLOBIN 11.7 g/dL (12.0-15.5); HGB HCT DIFFERENCE 1.5; LYMPHOCYTES % (AUTO) 24.1 % (13-45); MEAN CORPUSCULAR HEMOGLOBIN 32.3 pg (27.0-33.4); MEAN CORPUSCULAR HGB CONC 34.7 g/dL (32.0-36.0); MEAN CORPUSCULAR VOLUME 93 fl (80-97); MONOCYTES % (AUTO) 8.7 % (3-13); RED BLOOD COUNT 3.61 10^6/uL (3.72-5.28); RED CELL DISTRIBUTION WIDTH 12.7 % (11.5-14.0); SEGMENTED NEUTROPHILS % (AUTO) 64.1 % (42-78); WHITE BLOOD COUNT 11.5 10^3/uL (4.0-10.5)
--- NOTE | 2017-04-05 00:24 | ER Document Report ---
ED Dizziness/Weakness - General Chief Complaint: Near Syncope Stated Complaint: KNEE PAIN/FALL Time Seen by Provider: 04/04/17 23:47 Mode of Arrival: Stretcher Information source: Patient TRAVEL OUTSIDE OF THE [place] IN LAST 30 DAYS: No - HPI Patient complains to provider of: Dizziness, Weakness Onset: Other - Chronic Quality of pain: Achy Context: Chronic dizziness Notes: Patient is a 61-year-old female who presents to the emergency room today complaining of chronic dizziness with a syncopal episode that occurred on Wednesday of last week in which she fell and hurt her right knee, she was seen in the emergency room on that day and had a knee x-ray which showed no acute fracture or dislocation, she was discharged home, she reports that she continues to feel dizzy and lightheaded as well as having generalized weakness, she does reports that she has syncopal episodes and the symptoms have been going on for 3 years, she denies any new fall or injury today - Related Data Allergies/Adverse Reactions: Penicillins Allergy (Verified 04/04/17 22:48) Past Medical History - General Information source: Patient - Social History Smoking Status: Unknown if Ever Smoked Family History: None Patient has suicidal ideation: No Patient has homicidal ideation: No - Past Medical History Cardiac Medical History: Reports: Hx Hypercholesterolemia, Hx Hypertension Neurological Medical History: Denies: Hx Seizures Endocrine Medical History: Reports: Hx Diabetes Mellitus Type 2, Hx Hypothyroidism Renal/ Medical History: Denies: Hx Peritoneal Dialysis Psychiatric Medical History: Reports: Hx Depression, Hx Schizophrenia Past Surgical History: Reports: Hx Breast Surgery - Lumpectomy, Other - Left breast lumpectomy that was benign - Immunizations Immunizations up to date: No Hx Diphtheria, Pertussis, Tetanus Vaccination: No Review of Systems - Review of Systems Constitutional: No symptoms reported EENT: No symptoms reported Cardiovascular: See HPI Respiratory: No symptoms reported Gastrointestinal: No symptoms reported Genitourinary: No symptoms reported Female Genitourinary: No symptoms reported Musculoskeletal: See HPI Skin: No symptoms reported Hematologic/Lymphatic: No symptoms reported Neurological/Psychological: No symptoms reported -: Yes All other systems reviewed and negative Physical Exam - Vital signs Vitals: Temp Pulse Resp BP Pulse Ox 97.8 F 70 18 158/75 H 100 04/04/17 22:48 04/04/17 22:48 04/04/17 22:48 04/04/17 22:48 04/04/17 22:48 Interpretation: Normal - General General appearance: Appears well, Alert - HEENT Head: Normocephalic, Atraumatic Eyes: Normal Pupils: PERRL - Respiratory Respiratory status: No respiratory distress Chest status: Nontender Breath sounds: Normal Chest palpation: Normal - Cardiovascular Rhythm: Regular Heart sounds: Normal auscultation Murmur: No - Abdominal Inspection: Normal Distension: No distension Bowel sounds: Normal Tenderness: Nontender Organomegaly: No organomegaly - Back Back: Normal, Nontender - Extremities General upper extremity: Normal inspection, Nontender, Normal color, Normal ROM , Normal temperature General lower extremity: Normal temperature. No: Mohsen's sign Knee: Tender, Ecchymosis, Pain with ROM, Other - Patient's right knee has significant swelling and ecchymosis, as well as tenderness to palpate and pain with range of motion testing, distal sensation and motor is intact with 2+ DP pulses - Neurological Neuro grossly intact: Yes Cognition: Normal Orientation: AAOx4 [place] Coma Scale Eye Opening: Spontaneous [place] Coma Scale Verbal: Oriented [place] Coma Scale Motor: Obeys Commands [place] Coma Scale Total: 15 Speech: Normal Motor strength normal: LUE, RUE, LLE, RLE Sensory: Normal - Psychological Associated symptoms: Normal affect, Normal mood - Skin Skin Temperature: Warm Skin Moisture: Dry Skin Color: Normal Course - Re-evaluation Re-evalutation: 04/05/17 05:43 Lab and vital signs in the emergency room are unremarkable except for mild decreased glucose, patient was given juice and crackers in the emergency room, on reevaluation she is sitting up in bed, wide awake and watching TV, patient was advised of her lab findings, and Kyler wrap was placed on the right knee and she was discharged back to the long-term, given information for follow-up with orthopedics and advised to return if any additional concerns, patient acknowledges understanding and agreement with this plan - Vital Signs Vital signs: Temp Pulse Resp BP Pulse Ox 98 F 70 17 130/63 H 99 04/05/17 04:00 04/04/17 22:48 04/05/17 04:01 04/05/17 04:01 04/05/17 04:01 - Laboratory Result Diagrams: 04/04/17 23:35 09/17/17 23:35 Laboratory results interpreted by me: 04/04/17 04/04/17 23:35 23:35 WBC 11.5 H RBC 3.61 L Hgb 11.7 L Hct 33.6 L Sodium 132.7 L Chloride 96 L Glucose 68 L Procedures - Immobilization Right Knee Time completed: 02:00 Pre-Proc Neuro Vasc Exam: Normal Immobilizer type: Kyler wrap Performed by: PCT Post-Proc Neuro Vasc Exam: Normal Alignment checked and good: Yes Discharge - Discharge Clinical Impression: Generalized weakness, Swelling of knee joint, right Condition: Stable Disposition: HOME, SELF-CARE Instructions: Suspected Internal Knee Injury ([facility]), Knee Effusion ([facility]), Weakness ([facility]) Additional Instructions: Follow up with your primary care provider and an orthopedic surgeon in one to 2 days. Return to the emergency room immediately if symptoms worsen or any additional concerns. Ice and elevate the affected extremity. Limit weightbearing. Referrals: LALITHA EDDY MD [ACTIVE STAFF] - Follow up as needed
[2017-04-05 00:34] LABS: CREATINE KINASE MB 1.06 ng/mL (<4.55)
[2017-04-05 00:47] LABS: TROPONIN I < 0.012 ng/mL
[2017-04-05 04:06] VITALS: BP 130/63
== END 2017-04-05 04:12 | disposition home or self-care (01) ==
LOC: ER 22:14
DX: S80.01XA Contusion of right knee, initial encounter (principal); M25.461 Effusion, right knee; M25.561 Pain in right knee; M25.562 Pain in left knee; Z87.891 Personal history of nicotine dependence; W01.0XXA Fall on same level from slipping, tripping and stumbling without subsequent striking against object, initial encounter
CPT/HCPCS: 36415; 80053; 81001; 82550; 82553; 82962; 84484; 85025; 93005; 93010; 99285; L1830

== ENCOUNTER 2017-06-03 11:41 | Day surgery (SDC) | payer MEDICARE, MEDICAID ==
[~2017-06-03 11:41] MED LIST: CHONDR SU A NA/HYALUR INTRAOC KIT (SURGICARE) ONE; KETOROLAC TROMETHAMINE 0.45% 4 DROP/0.4 ML DROPERETTE OD PRN; LIDOCAINE 1% INJ-PF (10 MG/ML) 30 ML SDV ONE; PHENYLEPHRINE/KETOROLAC 1%-0.3% 4 ML VIAL ONE; TOBRAMYCIN SULFATE/DEXAMETH OPH OINTMENT 3.5 GM ONE
[2017-06-03] MEDS: TETRACAINE HCL 0.5% OPH SOLN 2 ML OD PRN ×3 (11:59→12:45)
[2017-06-03] MEDS: TROPICAMIDE 1% OPH SOLN 3 ML OD PRN ×3 (12:00→12:21)
[2017-06-03] MEDS: CYCLOPENTOLATE 0.2%/PHENYLEPHRINE 1% OPH SOLN 2 ML OD PRN ×3 (12:00→12:21)
[2017-06-03] MEDS: BESIFLOXACIN HCL 0.6% OPH SUSP 5 ML BOTTLE OD PRN ×3 (12:00→13:01)
[2017-06-03] MEDS ORDERED: MIDAZOLAM 2 MG/2 ML INJ ONE ×2 (12:25)
[2017-06-03] MEDS ORDERED: FENTANYL CITRATE INJ/PF 100 MCG/2 ML AMPUL ONE (12:26)
--- NOTE | 2017-06-03 19:08 | [facility] OPERATIVE REPORT E ---
[facility] Operative Report NAME: MANJEET HOFF AGE: 62Y DATE OF SURGERY: 06/03/2017 ROOM: PREOPERATIVE DIAGNOSIS: CATARACT, RIGHT EYE. POSTOPERATIVE DIAGNOSIS: CATARACT, RIGHT EYE. OPERATION: Cataract extraction with intraocular lens implant of the right eye. SURGEON: ALANIS GARSIA M.D. ANESTHESIA: Topical. PROCEDURE: After obtaining appropriate consent, the patient's right eye was prepped and draped in sterile fashion as well as the surgeon in a sterile manner and cataract surgery was started. First a paracentesis blade was used to make a small side-port incision. Viscoelastic was used to inflate the anterior chamber. Next a 2.4 mm incision was made with the paracentesis blade. A continuous capsulorrhexis incision was made using a cystotome and Utrata forceps. Following this hydrodissection was carried out to make the lens fully loose and mobile and it was rotated 90 degrees. Following this, a rwbpyg-taz-ouzglag technique was used to phacoemulsify the lens with a CDE of 7.33. The remaining cortex was removed with irrigation/aspiration. Provisc was instilled into the capsular bag to inflate the bag. A SN60WF, 22.0 diopter lens was placed. The remaining viscoelastic material was removed with irrigation/aspiration. Following this, a 10-0 nylon suture was used to close the incision and it was found to be watertight. Vigamox was instilled in the eye and a protective shield was placed over the eye. The patient returned to the postoperative recovery in stable condition. DICTATING PHYSICIAN: ALANIS GARSIA M.D. [id number] PHY#: [id number] ID: [id number] JOB#: [id number] ACCT: [id number] cc:ALANIS GARSIA M.D. >
--- NOTE | 2017-06-04 06:28 | [facility] DISCHARGE SUMMARY E ---
[facility] Discharge Summary NAME: MANJEET HOFF AGE: 62Y ADMITTED: 06/03/2017 DISCHARGED: 06/03/2017 HOSPITAL COURSE: This is a 62-year-old female who underwent cataract extraction of the right eye. DIAGNOSIS: Cataract, right eye. She underwent surgery because she was having difficulty reading small print. DISCHARGE INSTRUCTIONS: She should be on a regular diet. No bending at her waist. No heavy lifting. She should use her Besivance, Ilevro, and Durezol at 3 p.m. and 8 p.m. and sleep with a rigid shield, and I will see her for a 1 day postoperative tomorrow. DICTATING PHYSICIAN: ALANIS GARSIA M.D. [id number] PHY#: [id number] ID: [id number] JOB#: [id number] ACCT: [id number] cc:ALANIS GARSIA M.D. >
== END 2017-06-03 13:49 ==
LOC: SC 11:41
PROVIDERS: ATTEND Internal Medicine
PROC: 08RJ3JZ Replacement of Right Lens with Synthetic Substitute, Percutaneous Approach (ICD-10-PCS; principal; 2017-06-03 13:00)
DX: H25.11 Age-related nuclear cataract, right eye (principal); H57.03 Miosis; E11.9 Type 2 diabetes mellitus without complications; E03.9 Hypothyroidism, unspecified; E78.00 Pure hypercholesterolemia, unspecified; F17.210 Nicotine dependence, cigarettes, uncomplicated; Z88.0 Allergy status to penicillin; Z79.899 Other long term (current) drug therapy; Z79.82 Long term (current) use of aspirin; Z79.1 Long term (current) use of non-steroidal anti-inflammatories (NSAID); H25.13 Age-related nuclear cataract, bilateral
CPT/HCPCS: 66984; 82962; V2632; J2250; J3490 ×2; A9270; J3010; C9447; 142

== ENCOUNTER 2017-06-24 06:31 | Day surgery (SDC) | payer MEDICARE, MEDICAID ==
[~2017-06-24 06:31] MED LIST changes: -CHONDR SU A NA/HYALUR INTRAOC KIT (SURGICARE) ONE; -KETOROLAC TROMETHAMINE 0.45% 4 DROP/0.4 ML DROPERETTE OD PRN; +KETOROLAC TROMETHAMINE 0.45% 4 DROP/0.4 ML DROPERETTE OS PRN; -LIDOCAINE 1% INJ-PF (10 MG/ML) 30 ML SDV ONE; -PHENYLEPHRINE/KETOROLAC 1%-0.3% 4 ML VIAL ONE; -TOBRAMYCIN SULFATE/DEXAMETH OPH OINTMENT 3.5 GM ONE
[2017-06-24] MEDS: TROPICAMIDE 1% OPH SOLN 3 ML OS PRN ×3 (06:53→07:15)
[2017-06-24] MEDS: TETRACAINE HCL 0.5% OPH SOLN 2 ML OS PRN ×3 (06:53→07:31)
[2017-06-24] MEDS: CYCLOPENTOLATE 0.2%/PHENYLEPHRINE 1% OPH SOLN 2 ML OS PRN ×3 (06:53→07:15)
[2017-06-24] MEDS: BESIFLOXACIN HCL 0.6% OPH SUSP 5 ML BOTTLE OS PRN ×3 (06:53→07:59)
[2017-06-24] MEDS ORDERED: DEXTROSE 50%-WATER 25 GM/50 ML DISP.SYRIN IV ONE (07:06)
[2017-06-24] MEDS ORDERED: EPINEPHRINE INJ/PF 1 MG/1 ML AMPULE ONE (07:08)
[2017-06-24] MEDS ORDERED: CHONDR SU A NA/HYALUR INTRAOC KIT (SURGICARE) ONE (07:08)
[2017-06-24] MEDS ORDERED: LIDOCAINE 1% INJ-PF (10 MG/ML) 30 ML SDV ONE (07:08)
[2017-06-24] MEDS ORDERED: MIDAZOLAM 2 MG/2 ML INJ ONE ×2 (07:13→07:14)
--- NOTE | 2017-06-24 19:49 | [facility] OPERATIVE REPORT E ---
[facility] Operative Report NAME: MANJEET HOFF AGE: 62Y DATE OF SURGERY: 06/24/2017 ROOM: PREOPERATIVE DIAGNOSIS: CATARACT, LEFT EYE. POSTOPERATIVE DIAGNOSIS: CATARACT, LEFT EYE. OPERATION: Cataract extraction with intraocular lens implant of the left eye. SURGEON: ALANIS GARSIA M.D. ANESTHESIA: Topical. PROCEDURE: After obtaining appropriate consent, the patient's left eye was prepped and draped in sterile fashion as well as the surgeon in a sterile manner and cataract surgery was started. First a paracentesis blade was used to make a small side-port incision. Viscoelastic was used to inflate the anterior chamber. Next a 2.4 mm incision was made with the paracentesis blade. A continuous capsulorrhexis incision was made using a cystotome and Utrata forceps. Following this hydrodissection was carried out to make the lens fully loose and mobile and it was rotated 90 degrees. Following this, a yrgpup-ajn-hgpedee technique was used to phacoemulsify the lens with a CDE of 8.97. The remaining cortex was removed with irrigation/aspiration. Provisc was instilled into the capsular bag to inflate the bag. A SN60WF, 22.5 diopter lens was placed. The remaining viscoelastic material was removed with irrigation/aspiration. Following this, a 10-0 nylon suture was used to close the incision and it was found to be watertight. Vigamox was instilled in the eye and a protective shield was placed over the eye. The patient returned to the postoperative recovery in stable condition. DICTATING PHYSICIAN: ALANIS GARSIA M.D. [id number] PHY#: [id number] ID: [id number] JOB#: [id number] ACCT: [id number] cc:ALANIS GARSIA M.D. >
--- NOTE | 2017-06-24 19:50 | [facility] DISCHARGE SUMMARY E ---
[facility] Discharge Summary NAME: MANJEET HOFF AGE: 62Y ADMITTED: 06/24/2017 DISCHARGED: 06/24/2017 HOSPITAL COURSE: This is a 62-year-old patient who underwent cataract extraction of the left eye. DIAGNOSIS: CATARACT, LEFT EYE. The patient underwent surgery because she was having trouble seeing small print. DISCHARGE INSTRUCTIONS: She is to be on a regular diet. No bending at her waist, no heavy lifting. She should use Besivance, Ilevro, and Durezol at 3 p.m. and 8 p.m. and sleep with a rigid shield. I will see her for her 1 day postoperative tomorrow. DICTATING PHYSICIAN: ALANIS GARSIA M.D. [id number] PHY#: [id number] ID: [id number] JOB#: [id number] ACCT: [id number] cc:ALANIS GARSIA M.D. >
== END 2017-06-24 08:47 | disposition home or self-care (01) ==
LOC: SC 06:31
PROVIDERS: ATTEND Internal Medicine
PROC: 08RK3JZ Replacement of Left Lens with Synthetic Substitute, Percutaneous Approach (ICD-10-PCS; principal; 2017-06-24 07:30)
DX: H25.12 Age-related nuclear cataract, left eye (principal); Z96.1 Presence of intraocular lens; M19.90 Unspecified osteoarthritis, unspecified site; I10 Essential (primary) hypertension; E11.9 Type 2 diabetes mellitus without complications; E07.9 Disorder of thyroid, unspecified; Z79.1 Long term (current) use of non-steroidal anti-inflammatories (NSAID); Z79.4 Long term (current) use of insulin; Z79.84 Long term (current) use of oral hypoglycemic drugs; Z79.82 Long term (current) use of aspirin; Z88.0 Allergy status to penicillin
CPT/HCPCS: 66984; 82962; V2632; J2250; J3490 ×3; A9270; J0171; 142

== ENCOUNTER 2017-07-31 10:31 | Emergency (ER) | payer MEDICARE, MEDICAID ==
[2017-07-31 10:50] VITALS: BP 160/84
[2017-07-31] MEDS ORDERED: CEPHALEXIN 500 MG CAPSULE PO ONE (10:58)
--- NOTE | 2017-07-31 11:12 | ER Document Report ---
ED General - General Chief Complaint: Boil Stated Complaint: KNEE PROBLEM Time Seen by Provider: 07/31/17 10:46 TRAVEL OUTSIDE OF THE [place] IN LAST 30 DAYS: No - HPI Patient complains to provider of: Right knee Notes: A ball in the right knee. Patient states this is present approximate 2 3 days prior to arrival patient has now an area of erythema that spread patient denies any pain able to move her right knee through all ranges of motion. Patient resting comfortably states that she skinned her knee approximately last week after a fall. Denies fever chills nausea vomiting - Related Data Allergies/Adverse Reactions: Penicillins Allergy (Verified 06/21/17 12:45) Past Medical History - Social History Smoking Status: Unknown if Ever Smoked Family History: None - Past Medical History Cardiac Medical History: Reports: Hx Hypercholesterolemia, Hx Hypertension Denies: Hx Heart Attack Pulmonary Medical History: Denies: Hx Asthma Neurological Medical History: Denies: Hx Cerebrovascular Accident, Hx Seizures Endocrine Medical History: Reports: Hx Diabetes Mellitus Type 2, Hx Hypothyroidism Renal/ Medical History: Denies: Hx Peritoneal Dialysis GI Medical History: Denies: Hx Hepatitis, Hx Hiatal Hernia, Hx Ulcer Psychiatric Medical History: Reports: Hx Depression, Hx Schizophrenia Infectious Medical History: Denies: Hx Hepatitis Past Surgical History: Reports: Hx Breast Surgery - Lumpectomy, Other - Left breast lumpectomy that was benign. Denies: Hx Mastectomy, Hx Open Heart Surgery , Hx Pacemaker - Immunizations Immunizations up to date: No Hx Diphtheria, Pertussis, Tetanus Vaccination: No Review of Systems - Review of Systems Constitutional: No symptoms reported EENT: No symptoms reported Cardiovascular: No symptoms reported Respiratory: No symptoms reported Gastrointestinal: No symptoms reported Genitourinary: No symptoms reported Female Genitourinary: No symptoms reported Musculoskeletal: No symptoms reported Skin: Other - Abscess Hematologic/Lymphatic: No symptoms reported Neurological/Psychological: No symptoms reported -: Yes All other systems reviewed and negative Physical Exam - Vital signs Vitals: Temp Pulse Resp BP Pulse Ox 98.3 F 96 18 160/84 H 97 07/31/17 10:43 07/31/17 10:43 07/31/17 10:43 07/31/17 10:43 07/31/17 10:43 Interpretation: Normal - General General appearance: Appears well, Alert - HEENT Head: Normocephalic, Atraumatic Eyes: Normal Pupils: PERRL - Respiratory Respiratory status: No respiratory distress Chest status: Nontender Breath sounds: Normal Chest palpation: Normal - Cardiovascular Rhythm: Regular Heart sounds: Normal auscultation Murmur: No - Abdominal Inspection: Normal Distension: No distension Bowel sounds: Normal Tenderness: Nontender Organomegaly: No organomegaly - Back Back: Normal, Nontender - Extremities General upper extremity: Normal inspection, Nontender, Normal color, Normal ROM , Normal temperature General lower extremity: Nontender, Normal color, Normal ROM, Normal temperature , Normal weight bearing. No: Normal inspection - Patient's right knee has a small boil approximate 1 cm x 1 cm with a means on top surrounding cellulitis approximately 4 x 4 centimeters. There is small area of fluctuance in the middle, Mohsen's sign - Neurological Neuro grossly intact: Yes Cognition: Normal Orientation: AAOx4 [place] Coma Scale Eye Opening: Spontaneous [place] Coma Scale Verbal: Oriented [place] Coma Scale Motor: Obeys Commands Mauro Coma Scale Total: 15 Speech: Normal Motor strength normal: LUE, RUE, LLE, RLE Sensory: Normal - Psychological Associated symptoms: Normal affect, Normal mood - Skin Skin Temperature: Warm Skin Moisture: Dry Skin Color: Normal Course - Re-evaluation Re-evalutation: 07/31/17 14:43 Using a 18-gauge needle I was able to the roof the ball and approximately 1 cc of pus did return I did order a culture. Patient will be started on Keflex for surrounding cellulitis and will be discharged home. No signs of joint infection patient has full range of motion with no pain on range of motion. No fevers as well. - Vital Signs Vital signs: Temp Pulse Resp BP Pulse Ox 98.3 F 96 18 160/84 H 97 07/31/17 10:43 07/31/17 10:43 07/31/17 10:43 07/31/17 10:43 07/31/17 10:43 Discharge - Discharge Clinical Impression: Abscess Cellulitis Qualifiers: Site of cellulitis: extremity Site of cellulitis of extremity: lower extremity Laterality: right Qualified Code(s): L03.115 - Cellulitis of right lower limb Condition: Good Disposition: HOME, SELF-CARE Instructions: Post Incision and Drainage, Cephalexin ([facility]) Additional Instructions: Examination of the patient showed a small abscess on the medial side of patella of the right knee with surrounding cellulitis. An I&D was performed knocking of the right head of the small abscess with approximately 1 cc of pus drained. This was sent for culture. Otherwise patient has full range of motion of her knee I do not suspect a joint infection looks to be superficial. Patient will be started on Keflex for surrounding cellulitis patient should follow-up with her primary care physician in approximately 1-2 weeks. Prescriptions: Cephalexin Monohydrate [Keflex 500 mg Capsule] 500 mg PO Q6H 7 Days capsule
== END 2017-07-31 11:38 | disposition home or self-care (01) ==
LOC: ER 10:31
DX: L03.115 Cellulitis of right lower limb (principal); L02.425 Furuncle of right lower limb; L02.91 Cutaneous abscess, unspecified; E11.9 Type 2 diabetes mellitus without complications; I10 Essential (primary) hypertension; Z88.0 Allergy status to penicillin
CPT/HCPCS: 99283; 87070; 87205; 87075; 87077; 87186; A9270

== ENCOUNTER → 2017-09-14 | Outpatient (CLI) | payer MEDICARE, MEDICAID | LOC: OD 08:38 | PROVIDERS: ATTEND Family Medicine | DX: E11.65 Type 2 diabetes mellitus with hyperglycemia (principal); Z79.899 Other long term (current) drug therapy | CPT/HCPCS: 36415; 83036 ==

== ENCOUNTER 2017-10-13 00:30 | Emergency (ER) | payer MEDICARE, MEDICAID ==
[2017-10-13 02:25] LABS: ABSOLUTE BASOPHILS # (AUTO) 0.1 10^3/uL (0.0-0.2); ABSOLUTE EOSINOPHILS # (AUTO) 0.2 10^3/uL (0.0-0.6); ABSOLUTE LYMPHOCYTES (AUTO) 2.4 10^3/uL (0.5-4.7); ABSOLUTE MONOCYTES (AUTO) 0.9 10^3/uL (0.1-1.4); ABSOLUTE NEUT (AUTO) 9.1 10^3/uL (1.7-8.2); BASOPHILS % (AUTO) 0.8 % (0-2); EOSINOPHILS % (AUTO) 1.9 % (0-6); HEMATOCRIT 38.8 % (36.0-47.0); HEMOGLOBIN 13.1 g/dL (12.0-15.5); LYMPHOCYTES % (AUTO) 18.9 % (13-45); MEAN CORPUSCULAR HEMOGLOBIN 30.9 pg (27.0-33.4); MEAN CORPUSCULAR HGB CONC 33.6 g/dL (32.0-36.0); MEAN CORPUSCULAR VOLUME 92 fl (80-97); MONOCYTES % (AUTO) 7.2 % (3-13); PLATELET COUNT 354 10^3/uL (150-450); RED BLOOD COUNT 4.23 10^6/uL (3.72-5.28); RED CELL DISTRIBUTION WIDTH 13.1 % (11.5-14.0); SEGMENTED NEUTROPHILS % (AUTO) 71.2 % (42-78); TOTAL CELLS COUNTED % (AUTO) 100 %; WHITE BLOOD COUNT 12.7 10^3/uL (4.0-10.5)
[2017-10-13 02:32] LABS: APPEARANCE,URINE CLEAR; BILIRUBIN,URINE NEGATIVE (NEGATIVE); COLOR,URINE YELLOW; GLUCOSE, URINE NEGATIVE (NEGATIVE); KETONES,URINE NEGATIVE (NEGATIVE); LEUKOCYTE ESTERASE,URINE NEGATIVE (NEGATIVE); NITRITE,URINE NEGATIVE (NEGATIVE); PROTEIN,URINE NEGATIVE (NEGATIVE); URINE SPECIFIC GRAVITY 1.005; UROBILINOGEN,URINE NEGATIVE mg/dL (<2.0)
[2017-10-13 02:41] LABS: ALANINE AMINOTRANSFERASE 32 U/L (9-52); ALKALINE PHOSPHATASE 115 U/L (38-126); ANION GAP 8 (5-19); ASPARTATE AMINO TRANSFERASE 21 U/L (14-36); BILIRUBIN,DIRECT 0.3 mg/dL (0.0-0.4); BILIRUBIN,TOTAL 0.3 mg/dL (0.2-1.3); BLOOD UREA NITROGEN 11 mg/dL (7-20); CALCIUM 9.9 mg/dL (8.4-10.2); CARBON DIOXIDE 31 mmol/L (22-30); CHLORIDE 98 mmol/L (98-107); GLUCOSE 92 mg/dL (75-110); SODIUM 136.6 mmol/L (137-145); TOTAL PROTEIN 7.3 g/dL (6.3-8.2)
[2017-10-13 02:42] LABS: ACETAMINOPHEN < 10 ug/mL (10-30); ALCOHOL < 10 mg/dL (NONE DETECTED); SALICYLATE < 1.0 mg/dL (2.0-20.0)
[2017-10-13 02:48] LABS: URINE AMPHETAMINES SCREEN NEGATIVE; URINE BARBITURATES SCREEN NEGATIVE; URINE BENZODIAZEPINES SCREEN NEGATIVE; URINE COCAINE SCREEN NEGATIVE; URINE MARIJUANA (THC) SCREEN NEGATIVE; URINE METHADONE SCREEN NEGATIVE; URINE PHENCYCLIDINE SCREEN NEGATIVE
--- NOTE | 2017-10-13 05:12 | ER Document Report ---
ED General - General Chief Complaint: Psych Problem Stated Complaint: PSYCH EVAL Time Seen by Provider: 10/13/17 03:07 TRAVEL OUTSIDE OF THE [place] IN LAST 30 DAYS: No - HPI Patient complains to provider of: Left arm pain leftlegpain Notes: Patient coming in from local nursing care facility for left arm and left hip pain. Patient has a history of schizophrenia. Patient resting comfortably upon my evaluation drinking diet Pepsi. Patient states she has had intermittent left arm and left leg pain ongoing for months now. Patient currently states that she is not having any acute pain. Patient denies any other symptoms fever chills nausea vomiting diarrhea. A review of the chart does not give any further information. EMS did bring the patient and however they occur in the left. We did try to contact the patient's residents for further information however we did not have any return phone calls or any other information given. A psych consult was placed in triage however at this time patient does not look to have any acute psychiatric needs. - Related Data Allergies/Adverse Reactions: Penicillins Allergy (Verified 06/21/17 12:45) Past Medical History - Social History Smoking Status: Current Some Day Smoker Chew tobacco use (# tins/day): No Frequency of alcohol use: None Drug Abuse: None Family History: None Patient has suicidal ideation: No Patient has homicidal ideation: No - Past Medical History Cardiac Medical History: Reports: Hx Hypercholesterolemia, Hx Hypertension Denies: Hx Heart Attack Pulmonary Medical History: Reports: Hx Asthma, Hx Bronchitis Neurological Medical History: Denies: Hx Cerebrovascular Accident, Hx Seizures Endocrine Medical History: Reports: Hx Diabetes Mellitus Type 2, Hx Hypothyroidism Renal/ Medical History: Denies: Hx Peritoneal Dialysis GI Medical History: Denies: Hx Hepatitis, Hx Hiatal Hernia, Hx Ulcer Psychiatric Medical History: Reports: Hx Depression, Hx Schizophrenia Infectious Medical History: Denies: Hx Hepatitis Past Surgical History: Reports: Hx Breast Surgery - Lumpectomy, Other - Left breast lumpectomy that was benign. Denies: Hx Mastectomy, Hx Open Heart Surgery , Hx Pacemaker - Immunizations Immunizations up to date: No Hx Diphtheria, Pertussis, Tetanus Vaccination: No Review of Systems - Review of Systems Constitutional: No symptoms reported EENT: No symptoms reported Cardiovascular: No symptoms reported Respiratory: No symptoms reported Gastrointestinal: No symptoms reported Genitourinary: No symptoms reported Female Genitourinary: No symptoms reported Musculoskeletal: Other - Left arm left leg pain Skin: No symptoms reported Hematologic/Lymphatic: No symptoms reported Neurological/Psychological: No symptoms reported -: Yes All other systems reviewed and negative Physical Exam - Vital signs Vitals: Temp Pulse Resp BP Pulse Ox 97.4 F 81 18 151/77 H 97 10/13/17 01:49 10/13/17 01:49 10/13/17 01:49 10/13/17 01:49 10/13/17 01:49 Interpretation: Normal - General General appearance: Appears well, Alert - HEENT Head: Normocephalic, Atraumatic Eyes: Normal Pupils: PERRL - Respiratory Respiratory status: No respiratory distress Chest status: Nontender Breath sounds: Normal Chest palpation: Normal - Cardiovascular Rhythm: Regular Heart sounds: Normal auscultation Murmur: No - Abdominal Inspection: Normal Distension: No distension Bowel sounds: Normal Tenderness: Nontender Organomegaly: No organomegaly - Back Back: Normal, Nontender - Extremities General upper extremity: Normal inspection, Nontender, Normal color, Normal ROM , Normal temperature General lower extremity: Normal inspection, Nontender, Normal color, Normal ROM , Normal temperature, Normal weight bearing. No: Mohsen's sign - Neurological Neuro grossly intact: Yes Cognition: Normal Orientation: AAOx4 [place] Coma Scale Eye Opening: Spontaneous [place] Coma Scale Verbal: Oriented [place] Coma Scale Motor: Obeys Commands [place] Coma Scale Total: 15 Speech: Normal Motor strength normal: LUE, RUE, LLE, RLE Sensory: Normal - Psychological Associated symptoms: Normal affect, Normal mood - Skin Skin Temperature: Warm Skin Moisture: Dry Skin Color: Normal Course - Re-evaluation Re-evalutation: 10/13/17 05:44 Laboratory studies not reveal any significant pathology. Patient only complains of chronic left arm and a chronic left leg pain. Patient has been observed here in the ER without any significant pathology. Again we have tried to contact the patient's place of residence with no return phone calls. Patient although having a psych consult placed in triage does not look to have any acute psychiatric needs at this time. We will discharge patient home she should continue her chronic medications and follow-up with her PCP. - Vital Signs Vital signs: Temp Pulse Resp BP Pulse Ox 97.4 F 81 18 151/77 H 97 10/13/17 01:49 10/13/17 01:49 10/13/17 01:49 10/13/17 01:49 10/13/17 01:49 - Laboratory Result Diagrams: 10/13/17 02:10 10/13/17 02:10 Laboratory results interpreted by me: 10/13/17 10/13/17 02:10 02:10 WBC 12.7 H Absolute Neutrophils 9.1 H Sodium 136.6 L Carbon Dioxide 31 H Salicylates < 1.0 L Acetaminophen < 10 L Discharge - Discharge Clinical Impression: Chronic arm pain Qualifiers: Laterality: left Qualified Code(s): M79.602 - Pain in left arm; G89.29 - Other chronic pain; G89.29 - Other chronic pain Chronic leg pain Qualifiers: Laterality: left Qualified Code(s): M79.605 - Pain in left leg; G89.29 - Other chronic pain; G89.29 - Other chronic pain Condition: Good Disposition: HOME, SELF-CARE Instructions: Arthralgia ([facility]) Additional Instructions: Your evaluation night does not reveal any significant pathology for your arm or leg pain. I will highly recommend following up with your primary care physician for possible physical therapy. Return to ER for any other concerns. Referrals: ROSALIND WISE MD [Primary Care Provider] - Follow up as needed
[2017-10-13 07:07] VITALS: BP 123/101
--- NOTE | 2017-10-13 07:47 | EKG REPORT ---
SEVERITY:- ABNORMAL ECG - SINUS RHYTHM NONSPECIFIC INERIOR ST-T CHANGES : Confirmed by: Daquan Marcus MD 13-Oct-2017 07:46:56
== END 2017-10-13 06:15 | disposition home or self-care (01) ==
LOC: ER 00:30
DX: M79.602 Pain in left arm (principal); M79.605 Pain in left leg; G89.29 Other chronic pain; I10 Essential (primary) hypertension; E11.9 Type 2 diabetes mellitus without complications; J45.909 Unspecified asthma, uncomplicated; F17.200 Nicotine dependence, unspecified, uncomplicated
CPT/HCPCS: 36415; 80053; 80307; 81001; 85025; 93005; 93010; 99284

== ENCOUNTER 2018-01-09 02:36 | Emergency (ER) | payer MEDICARE, MEDICAID ==
--- NOTE | 2018-01-09 04:39 | RADIOLOGY REPORT (SQ) ---
EXAM DESCRIPTION: CT HEAD WITHOUT IV CONTRAST COMPLETED DATE/TME: 01/09/2018 03:41 CLINICAL HISTORY: 62 years Female, fall COMPARISON: 6.7.17 TECHNIQUE: No contrast. Coronal and sagittal reformat. This exam was performed according to our departmental dose-optimization program, which includes automated exposure control, adjustment of the mA and/or kV according to patient size and/or use of iterative reconstruction technique. FINDINGS: No hemorrhage. No mass, mass effect, or midline shift. Bilateral lacunar infarcts of basal ganglia without suspicious interval change. Brain and extra-axial structures appear otherwise intact. IMPRESSION: No acute findings.
--- NOTE | 2018-01-09 05:10 | ER Document Report ---
ED General - General Chief Complaint: Fall Stated Complaint: FALL Time Seen by Provider: 01/09/18 03:41 TRAVEL OUTSIDE OF THE [place] IN LAST 30 DAYS: No - HPI Patient complains to provider of: Fall Notes: Patient coming in for evaluation after a fall patient was trying to help her roommate to the bathroom and they both fell. Patient states she did fall and hit the floor hitting her head unclear there is any loss consciousness. Patient does have slight bruising to the head otherwise most of the HPI is obtained from EMS notes. Patient at this time denies any extremity pain chest pain or abdominal pain. - Related Data Allergies/Adverse Reactions: Penicillins Allergy (Verified 06/21/17 12:45) Past Medical History - Social History Smoking Status: Current Every Day Smoker Chew tobacco use (# tins/day): No Frequency of alcohol use: None Drug Abuse: None Family History: None Patient has suicidal ideation: No Patient has homicidal ideation: No - Past Medical History Cardiac Medical History: Reports: Hx Hypercholesterolemia, Hx Hypertension Denies: Hx Heart Attack Pulmonary Medical History: Reports: Hx Asthma, Hx Bronchitis Neurological Medical History: Denies: Hx Cerebrovascular Accident, Hx Seizures Endocrine Medical History: Reports: Hx Diabetes Mellitus Type 2, Hx Hypothyroidism Renal/ Medical History: Denies: Hx Peritoneal Dialysis GI Medical History: Denies: Hx Hepatitis, Hx Hiatal Hernia, Hx Ulcer Psychiatric Medical History: Reports: Hx Depression, Hx Schizophrenia Infectious Medical History: Denies: Hx Hepatitis Past Surgical History: Reports: Hx Breast Surgery - Lumpectomy, Other - Left breast lumpectomy that was benign. Denies: Hx Mastectomy, Hx Open Heart Surgery , Hx Pacemaker - Immunizations Immunizations up to date: No Hx Diphtheria, Pertussis, Tetanus Vaccination: No Review of Systems - Review of Systems Constitutional: Other - Fall EENT: No symptoms reported Cardiovascular: No symptoms reported Respiratory: No symptoms reported Gastrointestinal: No symptoms reported Genitourinary: No symptoms reported Female Genitourinary: No symptoms reported Musculoskeletal: No symptoms reported Skin: No symptoms reported Hematologic/Lymphatic: No symptoms reported Neurological/Psychological: No symptoms reported Physical Exam - Vital signs Vitals: Temp Pulse Resp BP Pulse Ox 97.9 F 80 16 164/89 H 95 01/09/18 02:40 01/09/18 02:40 01/09/18 02:40 01/09/18 02:40 01/09/18 02:40 Interpretation: Normal - General General appearance: Appears well, Alert - HEENT Head: Normocephalic. No: Atraumatic - Small little hematoma to the right temporal region Eyes: Normal Pupils: PERRL - Respiratory Respiratory status: No respiratory distress Chest status: Nontender Breath sounds: Normal Chest palpation: Normal - Cardiovascular Rhythm: Regular Heart sounds: Normal auscultation Murmur: No - Abdominal Inspection: Normal Distension: No distension Bowel sounds: Normal Tenderness: Nontender Organomegaly: No organomegaly - Back Back: Normal, Nontender - Extremities General upper extremity: Normal inspection, Nontender, Normal color, Normal ROM , Normal temperature General lower extremity: Normal inspection, Nontender, Normal color, Normal ROM , Normal temperature, Normal weight bearing. No: Mohsen's sign - Neurological Neuro grossly intact: Yes Cognition: Normal Orientation: AAOx4 Mauro Coma Scale Eye Opening: Spontaneous [place] Coma Scale Verbal: Oriented [place] Coma Scale Motor: Obeys Commands [place] Coma Scale Total: 15 Speech: Normal Motor strength normal: LUE, RUE, LLE, RLE Sensory: Normal - Psychological Associated symptoms: Normal affect, Normal mood - Skin Skin Temperature: Warm Skin Moisture: Dry Skin Color: Normal Course - Re-evaluation Re-evalutation: 01/09/18 05:[address] is normal. No other acute findings on examination patient will be discharged back to her detention facility - Vital Signs Vital signs: Temp Pulse Resp BP Pulse Ox 97.9 F 80 16 164/89 H 95 01/09/18 02:40 01/09/18 02:40 01/09/18 02:40 01/09/18 02:40 01/09/18 02:40 Discharge - Discharge Clinical Impression: Head contusion Qualifiers: Encounter type: initial encounter Contusion of head detail: unspecified part of head Qualified Code(s): S00.93XA - Contusion of unspecified part of head, initial encounter Instructions: Contusion ([facility]) Additional Instructions: Head CT the patient tonight was negative for any acute traumatic findings. Please make sure the patient has a safe environment to prevent falls. Have patient follow-up with primary care as needed Referrals: ROSALIND WISE MD [Primary Care Provider] - Follow up as needed
[2018-01-09 05:49] VITALS: BP 118/60
== END 2018-01-09 06:13 | disposition home health service (06) ==
LOC: ER 02:36
DX: S00.93XA Contusion of unspecified part of head, initial encounter (principal); W18.30XA Fall on same level, unspecified, initial encounter; Y92.121 Bathroom in nursing home as the place of occurrence of the external cause
CPT/HCPCS: 70450; 99284

== ENCOUNTER → 2018-05-13 | Outpatient (CLI) | payer MEDICARE, MEDICAID ==
--- NOTE | 2018-05-13 11:16 | RADIOLOGY REPORT (SQ) ---
EXAM DESCRIPTION: CT CHEST WITH COMPLETED DATE/TIME: 05/13/2018 10:04 am REASON FOR STUDY: MAL TOBI OF CONNECTIVE AND SOFT TISSUE, UNSPECIFIED C49.9 MALIGNANT NEOPLASM OF CO NNECTIVE AND SOFT TISSUE, UNSP C64.2 MALIGNANT NEOPLASM OF LEFT KIDNEY, EXCEPT RENAL PELVIS COMPARISON: 09/30/2015. TECHNIQUE: CT scan of the chest performed using helical scanning technique with dynamic intravenous contrast injection. Images reviewed with lung, soft tissue and bone windows. Reconstructed coronal and sagittal MPR and MIP images reviewed. All images stored on PACS. All CT scanners at this facility use dose modulation, iterative reconstruction, and/or weight based d osing when appropriate to reduce radiation dose to as low as reasonably achievable (ALARA). [facility]: Dose Right [facility]: CareDose [facility]: Dose Right [facility]: Teradose 4D [facility]: tidy CONTRAST TYPE AND DOSE: 88 mL Omnipaque 350- low osmolar. RENAL FUNCTION: Creatinine 0.7. RADIATION DOSE: . LIMITATIONS: None. FINDINGS: LUNGS AND PLEURA: Emphysematous changes. Chronic parenchymal scarring. Irregular nodule in the lingula measuring 8.8 mm (axial series 6, image 67). In addition there are multiple irregular small hazy ground-glass nodules throughout both lungs, generally measuring 1 cm or less. No pleural effusion. No pleural thickening or calcifications. HILAR AND MEDIASTINAL STRUCTURES: No identified masses or abnormal nodes. HEART AND VASCULAR STRUCTURES: No aneurysm or dissection. No central pulmonary emboli. No pericardi al effusion. Prominent pericardial fat located posterior to the right atrium, unchanged from the niko or study. HARDWARE: None in the chest. UPPER ABDOMEN: No significant findings. Limited exam. THYROID AND OTHER SOFT TISSUES: No masses. No adenopathy. BONES: No significant finding. OTHER: No other significant finding. IMPRESSION: EMPHYSEMATOUS CHANGES WITH CHRONIC SCARRING. IRREGULAR NODULE IN THE ANTERIOR LINGULA, NONSPECIFIC, BUT POSSIBLY REPRESENTING A METASTATIC LESION. IN ADDITION THERE ARE MULTIPLE IRREGULAR SMALL HAZY GROUND-GLASS NODULES SCATTERED THROUGHOUT BOTH LUNGS. THESE ARE NONSPECIFIC AND COULD BE DUE TO INFLAMMATORY OR INFECTIOUS PROCESS AND/OR SCARRING. HOWEVER, INVOLVEMENT WITH MALIGNANCY CAN NOT BE EXCLUDED. TECHNICAL DOCUMENTATION: JOB ID: [id number] Quality ID # [id number]: Final reports with documentation of one or more dose reduction techniques (e.g., Au tomated exposure control, adjustment of the mA and/or kV according to patient size, use of iterative reconstruction technique) 2010 [employer]- All Rights Reserved Reading location - IP/workstation name: [email or web address]
--- NOTE | 2018-05-13 11:29 | RADIOLOGY REPORT (SQ) ---
EXAM DESCRIPTION: CT ABD/PELVIS WITH IV ONLY COMPLETED DATE/TIME: 05/13/2018 10:04 am REASON FOR STUDY: MAL TOBI OF CONNECTIVE AND SOFT TISSUE, UNSPECIFIED C49.9 MALIGNANT NEOPLASM OF CO NNECTIVE AND SOFT TISSUE, UNSP C64.2 MALIGNANT NEOPLASM OF LEFT KIDNEY, EXCEPT RENAL PELVIS COMPARISON: 03/31/2018. TECHNIQUE: CT scan of the abdomen and pelvis performed using helical scanning technique with dynamic intravenous contrast injection. No oral contrast. Images reviewed with lung, soft tissue, and bone windows. Reconstructed coronal and sagittal MPR images reviewed. Delayed images for evaluation of the urinary system also acquired. All images stored on PACS. All CT scanners at this facility use dose modulation, iterative reconstruction, and/or weight based d osing when appropriate to reduce radiation dose to as low as reasonably achievable (ALARA). [facility]: Dose Right [facility]: CareDose [facility]: Dose Right [facility]: Teradose 4D [facility]: [employer] CONTRAST TYPE AND DOSE: contrast/concentration: Isovue 350.00 mg/ml; Total Contrast Delivered: 88.0 ml; Total Saline Delivered: 70.0 ml RENAL FUNCTION: Creatinine 0.7. RADIATION DOSE: CT Rad equipment meets quality standard of care and radiation dose reduction techniq ues were employed. CTDIvol: 4.9 - 7.7 mGy. DLP: 984 mGy-cm.. LIMITATIONS: None. FINDINGS: LOWER CHEST: See separate report of the CT of the chest. LIVER: Normal size. No masses. No dilated ducts. SPLEEN: Normal size. No focal lesions. PANCREAS: No masses. No significant calcifications. No adjacent inflammation or peripancreatic fluid collections. Pancreatic duct not dilated. GALLBLADDER: Gallstones. No inflammatory changes to suggest cholecystitis. ADRENAL GLANDS: No significant masses or asymmetry. RIGHT KIDNEY AND URETER: Irregular mass at the level of the renal pelvis, located between the kidney and abdominal aorta. At the level the renal pelvis the AP measurement is 3.8 cm and transverse measu rement is 4.1 cm. There is irregular soft tissue extending along the course of the left ureter to ap proximately the level of L5. Overall cranial caudal extent of the soft tissue measures approximately 8.6 cm. Marked hydronephrosis with significant delay in excretion. Prominent stranding in the pe rinephric fatty soft tissues. LEFT KIDNEY AND URETER: No solid masses. No significant calcifications. No hydronephrosis or hydr oureter. AORTA AND VESSELS: No aneurysm. No dissection. Renal arteries, SMA, celiac without stenosis. RETROPERITONEUM: No retroperitoneal adenopathy, hemorrhage or masses. BOWEL AND PERITONEAL CAVITY: Diverticuli in the descending and sigmoid colon. No masses or inflammat ory changes. No free fluid or peritoneal masses. APPENDIX: Normal. PELVIS: Irregular somewhat lobular low-attenuation lesions in the right adnexal region (axial series 3, images 67 and 71) measuring 2.5 and 3.3 cm. No free fluid. Normal bladder. ABDOMINAL WALL: No masses. No hernias. BONES: No significant or acute findings. Degenerative changes in the spine. OTHER: No other significant finding. Numerous calcifications in the subcutaneous fatty tissues of th e buttocks likely due to injection granulomas and/or related to prior trauma. IMPRESSION: 1. LARGE IRREGULAR SOFT TISSUE MASS AT THE LEVEL OF THE LEFT KIDNEY AND EXTENDING ALONG THE COURSE OF THE LEFT URETER WITH SIGNIFICANT OBSTRUCTIVE UROPATHY. THE PATIENT'S PAPERWORK INDICATES THE DIAGNO SIS OF SPINDLE CELL CARCINOMA. 2. LOBULAR LOW-ATTENUATION LESIONS IN THE RIGHT ADNEXAL REGION OF THE PELVIS. THESE MAY BE DUE TO OV DIONI CYSTS. HOWEVER, OTHER SOFT TISSUE MASSES INCLUDING METASTASES COULD BE POSSIBLE. RECOMMEND PE LVIC ULTRASOUND FOR FURTHER EVALUATION. 3. GALLSTONES. 4. COLONIC DIVERTICULOSIS. 5. CHRONIC DEGENERATIVE CHANGES IN THE SPINE. 6. NO OTHER SIGNIFICANT FINDINGS. TECHNICAL DOCUMENTATION: JOB ID: [id number] Quality ID # 436: Final reports with documentation of one or more dose reduction techniques (e.g., Au tomated exposure control, adjustment of the mA and/or kV according to patient size, use of iterative reconstruction technique) 2010 [employer]- All Rights Reserved Reading location - IP/workstation name: [email or web address]
== END ==
LOC: RAD 09:22
PROVIDERS: ATTEND Internal Medicine Hematology & Oncology
DX: C49.9 Malignant neoplasm of connective and soft tissue, unspecified (principal); C64.2 Malignant neoplasm of left kidney, except renal pelvis
CPT/HCPCS: 71260; 74177; 82565

== ENCOUNTER → 2018-06-01 | Outpatient (CLI) | payer MEDICARE, MEDICAID ==
--- NOTE | 2018-06-01 10:39 | WOMENS IMAGING REPORT ---
EXAM DESCRIPTION: 3D SCREENING MAMMO BILAT COMPLETED DATE/TIME: 06/01/2018 9:47 am REASON FOR STUDY: BILATERAL SCREENING MAMMO 3D/Z12.31 Z12.31 ENCNTR SCREEN MAMMOGRAM FOR MALIGNANT NEOPLASM OF EBENEZER COMPARISON: [id number] TECHNIQUE: Standard craniocaudal and mediolateral oblique views of each breast recorded using digita l acquisition and breast tomosynthesis. LIMITATIONS: None. FINDINGS: No masses, calcifications or architectural distortion. No areas of suspicion. Read with the assistance of CAD. .[facility] - R2 [employer] Version 1.3 .[facility] Imaging - R2 C[employer] Version 1.3 .[facility] Imaging - R2 Cen[employer] Version 2.4 .[facility] - R2 Cenova Version 2.4 .[facility] - R2 [employer] Version 9.2 IMPRESSION: NORMAL MAMMOGRAM. BIRADS 1. BREAST DENSITY: b. There are scattered areas of fibroglandular density. BIRAD: 1 NEGATIVE RECOMMENDATION: ROUTINE SCREENING COMMENT: The patient has been notified of the results by letter per SA requirements. Additional no tification policies are in place for contacting patient with suspicious or incomplete findings. Quality ID #225: The [employer] recommends an annual screening mammogram for women aged 40 years or over. This facility utilizes a reminder system to ensure that all patients receive reminder letters, and/or direct phone calls for appointments. This includes reminders for routine scr eening mammograms, diagnostic mammograms, or other Breast Imaging Interventions when appropriate. Th is patient will be placed in the appropriate reminder system. The [employer] (ACR) has developed recommendations for screening MRI of the breast s in certain patient populations, to be used in conjunction with mammography. Breast MRI surveillanc e may be appropriate for women with more than 20% lifetime risk of developing breast cancer as deter mined by genetic testing, significant family history of the disease, or history of mantle radiation f or Hodgkins Disease. ACR Practice Guidelines 2008. DBT Technology DBT is a type of tomographic mammography. With conventional mammography, overlapping breast tissue ma y make lesions difficult to detect, even with good compression. DBT uses an x-ray tube that rotates a round the breast, taking images at different angles. These images are then combined to create thin sl ices of the breast that the radiologist can view as a 3D reconstruction. The 48domain unit can perform full-field digital mammograms (2D imaging); or DBT (3D imaging); or both, in a combination mode that quickly performs both the mammogram and the tomosynthesis scan while the breast is still compressed. PQRS 6045F: Fluoroscopic imaging is not utilized for breast tomosynthesis. TECHNICAL DOCUMENTATION: FINDING NUMBER: (1) ASSESSMENT: (1) JOB ID: [id number] [employer]- All Rights Reserved Reading location - IP/workstation name: [facility]
== END ==
LOC: WI 09:16
PROVIDERS: ATTEND Family Medicine
DX: Z12.31 Encounter for screening mammogram for malignant neoplasm of breast (principal)
CPT/HCPCS: 77063; 77067

== ENCOUNTER → 2018-06-01 | Outpatient (CLI) | payer MEDICARE, MEDICAID ==
[2018-06-01 10:54] LABS: ANION GAP 12 (5-19); BLOOD UREA NITROGEN 8 mg/dL (7-20); CALCIUM 9.7 mg/dL (8.4-10.2); CARBON DIOXIDE 27 mmol/L (22-30); CHLORIDE 94 mmol/L (98-107); CHOLESTEROL 123.62 mg/dL (0-200); GLUCOSE 125 mg/dL (75-110); POTASSIUM 4.5 mmol/L (3.6-5.0); SODIUM 132.8 mmol/L (137-145); TRIGLYCERIDES 65 mg/dL (<150)
[2018-06-01 11:04] LABS: DIRECT LDL 64 mg/dL (<100)
[2018-06-03 11:39] LABS: CREATININE URINE 83.6 mg/dL (Not Estab.); MICROALBUMIN URINE 8.1 ug/mL (Not Estab.)
== END ==
LOC: OD 10:06
PROVIDERS: ATTEND Family Medicine
DX: E11.65 Type 2 diabetes mellitus with hyperglycemia (principal); I10 Essential (primary) hypertension; E78.5 Hyperlipidemia, unspecified; Z79.899 Other long term (current) drug therapy
CPT/HCPCS: 36415; 80048; 80061; 82043; 82570; 83036; 84443

== ENCOUNTER 2018-09-11 23:12 | Emergency (ER) | payer MEDICARE, MEDICAID ==
[2018-09-11] MEDS ORDERED: NORMAL SALINE 1000 ML 1,000 ML IV ONE (23:31)
--- NOTE | 2018-09-11 23:36 | ER Document Report ---
ED General - General Stated Complaint: ALTERED MENTAL STATUS Time Seen by Provider: 09/11/18 23:26 Primary Care Provider: ROSALIND WISE MD [Primary Care Provider] - Follow up as needed Mode of Arrival: Medic Information source: Emergency Med Personnel Notes: 63-year-old female with a history of kidney cancer who is in hospice and DNR status is brought to the emergency department by EMS for altered mental status. Patient is awake and alert to name and place. She has no complaints. She is tachycardic and tachypneic in the emergency department. She is satting at 92% on 2 L. TRAVEL OUTSIDE OF THE [place] IN LAST 30 DAYS: No - HPI Onset: Just prior to arrival Onset/Duration: Sudden Quality of pain: No pain Severity: None Pain Level: Denies Associated symptoms: None Exacerbated by: Denies Relieved by: Denies Similar symptoms previously: No Recently seen / treated by doctor: No - Related Data Allergies/Adverse Reactions: Penicillins Allergy (Verified 06/21/17 12:45) Past Medical History - General Information source: Emergency Med Personnel - Social History Smoking Status: Unknown if Ever Smoked Family History: None - Past Medical History Cardiac Medical History: Reports: Hx Hypercholesterolemia, Hx Hypertension Denies: Hx Heart Attack Pulmonary Medical History: Reports: Hx Asthma, Hx Bronchitis Neurological Medical History: Denies: Hx Cerebrovascular Accident, Hx Seizures Endocrine Medical History: Reports: Hx Diabetes Mellitus Type 2, Hx Hypothyroidism Renal/ Medical History: Denies: Hx Peritoneal Dialysis GI Medical History: Denies: Hx Hepatitis, Hx Hiatal Hernia, Hx Ulcer Psychiatric Medical History: Reports: Hx Depression, Hx Schizophrenia Infectious Medical History: Denies: Hx Hepatitis Past Surgical History: Reports: Hx Breast Surgery - Lumpectomy, Other - Left breast lumpectomy that was benign. Denies: Hx Mastectomy, Hx Open Heart Surgery, Hx Pacemaker - Immunizations Immunizations up to date: No Hx Diphtheria, Pertussis, Tetanus Vaccination: No Review of Systems - Review of Systems -: Yes ROS unobtainable due to patient's medical condition Physical Exam - Vital signs Vitals: Pulse Resp BP Pulse Ox 108 H 34 H 105/66 99 09/11/18 23:32 09/11/18 23:32 09/11/18 23:32 09/11/18 23:32 - Notes Notes: PHYSICAL EXAMINATION: GENERAL: ill appearing female. HEAD: Atraumatic, Orientated to person and place. EYES: Pupils equal round and reactive to light, extraocular movements intact, conjunctiva are normal. ENT: Nares patent, oropharynx clear without exudates. Moist mucous membranes. NECK: Normal range of motion, supple without lymphadenopathy LUNGS: Breath sounds clear to auscultation bilaterally and equal. Tachypneic. No wheezes rales or rhonchi. HEART: Tachycardic. S1S2 appreciated. ABDOMEN: Soft, nontender, nondistended abdomen. No guarding, no rebound. No masses appreciated. Female : deferred Musculoskeletal: Normal range of motion, no pitting or edema. No cyanosis. NEUROLOGICAL: Cranial nerves grossly intact. Normal speech. Moving all four extremities. SKIN: Warm, Dry, Stage 2 decubitus ulcer appreciated. . Course - Re-evaluation Re-evalutation: 09/12/18 03:02 White blood cell count is 22. Hemoglobin is 9.3. There are signs of infection in both the urine and the left lung. Patient is a DNR hospice patient. Hospice nurse was contacted. She states that we should discharge the patient back to the facility with a prescription for an antibiotic. Patient given vancomycin as well as aztreonam while in the emergency department. I will discharge her home with a prescription for levofloxacin. - Vital Signs Vital signs: Temp Pulse Resp BP Pulse Ox 108 H 25 H 112/76 96 09/11/18 23:32 09/12/18 00:31 09/12/18 00:31 09/12/18 00:01 - Laboratory Result Diagrams: 09/12/18 00:21 09/12/18 00:21 Laboratory results interpreted by me: 09/12/18 09/12/18 09/12/18 00:21 00:21 00:30 WBC 22.1 H RBC 3.37 L Hgb 9.3 L Hct 29.0 L RDW 18.1 H Seg Neuts % (Manual) 92 H Lymphocytes % (Manual) 4 L Abs Neuts (Manual) 20.3 H Sodium 133.8 L BUN 32 H Direct Bilirubin 0.5 H Alkaline Phosphatase 165 H Total Protein 5.6 L Albumin 2.2 L Urine Protein 30 H Urine Nitrite POSITIVE H Urine Bilirubin SMALL H Urine Urobilinogen 4.0 H Ur Leukocyte Esterase TRACE H Urine Ascorbic Acid 20 H Discharge - Discharge Clinical Impression: Urinary tract infection Qualifiers: Urinary tract infection type: site unspecified Hematuria presence: without hematuria Qualified Code(s): N39.0 - Urinary tract infection, site not specified Pneumonia Qualifiers: Pneumonia type: due to unspecified organism Laterality: left Lung location: unspecified part of lung Qualified Code(s): J18.9 - Pneumonia, unspecified organism Decubitus ulcer of ankle, stage 2 Qualifiers: Laterality: unspecified laterality Qualified Code(s): L89.502 - Pressure ulcer of unspecified ankle, stage 2 Condition: Serious Disposition: HOME, SELF-CARE Instructions: Pneumonia ([facility]), Urinary Tract Infection ([facility]) Prescriptions: Levofloxacin [Levaquin 750 mg Tablet] 750 mg PO DAILY #5 tablet Referrals: ROSALIND WISE MD [Primary Care Provider] - Follow up as needed
[2018-09-12] MEDS ORDERED: AZTREONAM INJ 1 GM VIAL IV ONE (00:02)
[2018-09-12] MEDS ORDERED: VANCOMYCIN HCL INJ 1000 MG VIAL IV ONE (00:02)
[2018-09-12 00:53] LABS: VENOUS BLOOD BASE EXCESS 2.3 mmol/L; VENOUS BLOOD HCO3 27.4 mmol/L (20-32); VENOUS BLOOD PCO2 45.5 mmHg (35-63); VENOUS BLOOD PH 7.4 (7.30-7.42)
[2018-09-12 00:55] LABS: HEMOGLOBIN 9.3 g/dL (12.0-15.5); MEAN CORPUSCULAR HEMOGLOBIN 27.6 pg (27.0-33.4); MEAN CORPUSCULAR VOLUME 86 fl (80-97); PLATELET COUNT 406 10^3/uL (150-450); RED BLOOD COUNT 3.37 10^6/uL (3.72-5.28); RED CELL DISTRIBUTION WIDTH 18.1 % (11.5-14.0); WHITE BLOOD COUNT 22.1 10^3/uL (4.0-10.5)
[2018-09-12 00:58] LABS: INTERNATIONAL RATION (INR) 1.12
[2018-09-12 01:01] LABS: APPEARANCE,URINE CLOUDY; BILIRUBIN,URINE SMALL (NEGATIVE); COLOR,URINE AMBER; GLUCOSE, URINE NEGATIVE (NEGATIVE); KETONES,URINE NEGATIVE (NEGATIVE); LEUKOCYTE ESTERASE,URINE TRACE (NEGATIVE); NITRITE,URINE POSITIVE (NEGATIVE); PROTEIN,URINE 30 mg/dL (NEGATIVE); URINE SPECIFIC GRAVITY 1.024
[2018-09-12 01:06] LABS: ALANINE AMINOTRANSFERASE 26 U/L (9-52); ALBUMIN 2.2 g/dL (3.5-5.0); ALKALINE PHOSPHATASE 165 U/L (38-126); ASPARTATE AMINO TRANSFERASE 22 U/L (14-36); BILIRUBIN,DIRECT 0.5 mg/dL (0.0-0.4); BILIRUBIN,TOTAL 1.1 mg/dL (0.2-1.3); BLOOD UREA NITROGEN 32 mg/dL (7-20); CARBON DIOXIDE 26 mmol/L (22-30); CHLORIDE 104 mmol/L (98-107); GLUCOSE 86 mg/dL (75-110); POTASSIUM 4.5 mmol/L (3.6-5.0); SODIUM 133.8 mmol/L (137-145); TOTAL PROTEIN 5.6 g/dL (6.3-8.2)
[2018-09-12 01:12] LABS: ANION GAP 6 (5-19)
--- NOTE | 2018-09-12 01:13 | RADIOLOGY REPORT (SQ) ---
EXAM DESCRIPTION: XR CHEST 1 VIEW COMPLETED DATE/TME: 09/11/2018 23:31 CLINICAL HISTORY: 63 years, Female, sepsis Comparison: None FINDINGS: Patchy alveolar opacities in the left lung base silhouettes the hemidiaphragm may relate to atelectasis or pneumonia. Cannot exclude a small left effusion. The right lung is clear. There are no pleural abnormalities on the right. The cardiac silhouette is normal in size. Advanced degenerative changes in the left shoulder. IMPRESSION: Left basilar parenchymal/pleural opacities.
[2018-09-12 01:21] LABS: ABSOLUTE LYMPHOCYTES# (MANUAL) 0.9 10^3/uL (0.5-4.7); ABSOLUTE MONOCYTES # (MANUAL) 0.9 10^3/uL (0.1-1.4); ABSOLUTE NEUTROPHILS# (MANUAL) 20.3 10^3/uL (1.7-8.2); BASOPHILS % (MANUAL) 0 % (0-2); EOSINOPHILS % (MANUAL) 0 % (0-6); LYMPHOCYTES % (MANUAL) 4 % (13-45); MONOCYTES % (MANUAL) 4 % (3-13); SEGMENTED NEUTROPHILS % (MAN) 92 % (42-78); TOTAL CELLS COUNTED 100
[2018-09-12 01:23] LABS: TOXIC VACUOLATION PRESENT
[2018-09-12 01:24] LABS: TOXIC GRANULATION 1+
[2018-09-12 01:27] LABS: ANISOCYTOSIS 2+; PLATELET COMMENT ADEQUATE; POIKILOCYTOSIS 2+; SCHISTOCYTES 1+; TEAR DROP CELLS SLIGHT
--- NOTE | 2018-09-12 01:31 | RADIOLOGY REPORT (SQ) ---
EXAM DESCRIPTION: CT HEAD WITHOUT IV CONTRAST COMPLETED DATE/TME: 09/11/2018 23:32 CLINICAL HISTORY: 63 years, Female, ams COMPARISON: January 09, 2018 Technique: Contiguous axial images of the brain were obtained without the administration of intravenous contrast. Coronal and sagittal reformats obtained and reviewed. This exam was performed according to our departmental dose-optimization program which includes use of Automated Exposure Control, adjustment of the mA and/or kV according to patient size and/or use of iterative reconstruction technique. 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 Periventricular and deep white matter hypodensities, most commonly due to nonspecific white matter chronic microvascular ischemia.No hemorrhage. No territorial infarct. No mass effect. No herniation. Ventricles: Prominent. Bones: No acute osseous abnormality. Paranasal sinuses: Unremarkable. Mastoid air cells: Unremarkable. Soft tissues: No acute abnormality. IMPRESSION: No acute intracranial abnormalities.
[2018-09-12 03:58] VITALS: BP 92/68
--- NOTE | 2018-09-12 06:32 | EKG REPORT ---
SEVERITY:- ABNORMAL ECG - SINUS TACHYCARDIA WITH PAC PROBABLE LEFT ATRIAL ABNORMALITY PROBABLE LEFT VENTRICULAR HYPERTROPHY : Confirmed by: Daquan Marcus MD 12-Sep-2018 06:31:18
== END 2018-09-12 04:10 | disposition home or self-care (01) ==
LOC: ER 23:12
DX: N39.0 Urinary tract infection, site not specified (principal); J18.9 Pneumonia, unspecified organism; L89.502 Pressure ulcer of unspecified ankle, stage 2; R00.0 Tachycardia, unspecified; R41.82 Altered mental status, unspecified; I10 Essential (primary) hypertension; J45.909 Unspecified asthma, uncomplicated; E11.9 Type 2 diabetes mellitus without complications; Z66 Do not resuscitate; Z88.0 Allergy status to penicillin
CPT/HCPCS: 93005; 99285; 96361; 96365; 96366; 96368; 36415; 87040; 87086; 85025; 85610; 87077; 87088; 80053; 81001; 84484; 87186; 82803; 83605; 71045; 70450; 93010; J7030; J3370; J3490